=== PATIENT | male | born 1960 | race Caucasian/White ===

== ENCOUNTER 2021-03-20 16:41 | Inpatient (IN) ==
--- NOTE | 2021-03-20 17:24 | Emergency Department Note ---
Impression & Plan Hypoxia, Fluid overload, Hypertensive urgency ED Provider Note Provider: Davin Win MD DATE OF SERVICE: 03/20/2021 CHIEF COMPLAINT: Dyspnea on exertion, weakness HISTORY OF PRESENT ILLNESS: Patient is a 60-year-old gentleman history of hypertension and hyperlipidemia presenting referred from the outpatient [facility] clinic via ambulance today due to new onset of hypoxia. Patient and patient's at bedside report over the past month he is off symptoms particularly with exertion of some shortness of breath over the last several days. Some weakness over the last several weeks. Denies any pain. No syncope reported. Patient states he noted some increased swelling of his legs and a little bit of slight increased abdominal swelling. Denies any fever or chills. Denies any recent travel or sick contacts. Patient states he missed his blood pressure medicine yesterday and today as the pharmacy was out of his losartan. Noted at the clinic to be hypoxic into the mid 80s and hypertensive. REVIEW OF SYSTEMS: A total of 10 review of systems was obtained and negative except as stated above in the HPI. PAST MEDICAL HISTORY: As noted above MEDICATIONS: Reviewed home medications SOCIAL HISTORY: Former smoker, PHYSICAL EXAM: GENERAL: alert and oriented in no acute distress on stretcher Head: normocephalic and atraumatic EYES: No injection, discharge or icterus. NECK: Trachea midline. Supple. ENT: Mucous membranes pink and moist. LUNGS: Airway patent. No retractions. Breath sounds clear HEART: Regular rate and rhythm. No chest wall tenderness ABDOMEN: Soft and non-tender, without guarding or rebound. Mild distention. SKIN: Acyanotic, warm, dry, without rashes EXTREMITIES: Without swelling, tenderness or deformity with 1-2+ lower extremity edema. NEUROLOGICAL: No focal deficits. No aphasia. No facial droop or slurred speech. Normal strength and tone in the extremities. Sensation to gross touch normal. Ambulatory. EK bpm normal sinus rhythm right bundle branch block. No PVC or PAC. No acute ST segment elevation with some diffuse anterior T wave inversions. QTC 518. CONTINUOUS CARDIAC MONITORING: was ordered and showed a heart rate of 80s-90s bpm in normal sinus rhythm Patient's laboratory studies and imaging reviewed. Differential includes Infection, dehydration, metabolic abnormality, hypo/hyperglycemia, electrolyte disturbance, anemia, hypoxia, cardiac sources, intracerebral event, toxicologic, neurologic, as well as other pathologies. IMPRESSION/MEDICAL DECISION MAKING: Patient with significant hypertension. No pain complaint. Mildly hypoxic. Some mild history of emphysema/smoking reported. Non-smoker now. No infectious symptoms reported. Improvement of hypoxia with limited oxygen supplementation. D-dimer negative given this low suspicion for PE. Covid test was sent. Basic blood work sent. EKG with some T wave changes and right bundle branch block. Troponin detectable but not abnormal. Some leg swelling. Question some onset of CHF possibly from uncontrolled hypertension. Given a dose of nitroglycerin and some Lasix initially. Discussed with the patient given his hypoxia recommend further evaluation here in the hospital with cardiac evaluation of the heart and blood pressure control. He was in agreement this plan. Hospitalist contacted. DIAGNOSIS: Hypoxia, fluid overload, hypertensive urgency DISPOSITION: Hospitalist will evaluate Patient was agreeable with this plan. Past Med/Surg History Medical History (Updated 03/20/21 @ 18:41 by Davin Win M.D.) Dyslipidemia Hydradenitis Hypertension Surgical History (Updated 12/31/17 @ 07:56 by Linda Chowdary) History of appendectomy Social History Smoking Status: Former smoker Feels Safe at Home: Yes Allergies Allergies Allergy/AdvReac Type Severity Reaction Status Date / Time No Known Allergies Allergy Unknown Verified 03/20/21 17:43 Home Meds Home Medications Medication Instructions Recorded Confirmed atorvastatin 20 mg tablet 20 mg PO HS 12/31/17 03/20/21 losartan 50 mg tablet 50 mg PO DAILY 12/31/17 03/20/21 adalimumab 40 mg/0.4 mL 40 mg SUBCUT WK 03/20/21 03/20/21 subcutaneous pen kit (Humira(CF) Pen) fluticasone 250 mcg-salmeterol 50 1 inh INHALATION DAILY 03/20/21 03/20/21 mcg/dose blistr powdr for inhalation (Advair Diskus) Results & Data (ED) Vital Signs Vital Signs - 24 hr 03/20/21 16:45 03/20/21 16:53 03/20/21 17:24 Temperature 36.7 C Temperature Source Temporal Artery Scan Pulse Rate 95 H 88 Pulse Rate [Finger] 89 Pulse Rhythm Regular Regular Pulse Rhythm [Finger] Regular Pulse Strength Normal Pulse Strength [Finger] Normal Respiratory Rate 22 20 20 Respiratory Effort / Characteristics Non-Labored Spontaneous Respiratory Depth Normal Normal Respiratory Pattern Regular Regular Blood Pressure 213/137 H Blood Pressure [Right Arm] Blood Pressure Mean 162 Blood Pressure Mean [Right Arm] Blood Pressure Position Sitting Blood Pressure Position [Right Arm] Pulse Oximetry 73 L 92 96 Oxygen Delivery Method Room Air Nasal Cannula Nasal Cannula Oxygen Flow Rate 4 4 Sepsis Recent Fever Within 48 Hours No Sepsis New/Unexplained Change in Mental Status N/A Sepsis Action Taken by Nursing No Action Required 03/20/21 18:15 03/20/21 18:38 Temperature Temperature Source Pulse Rate Pulse Rate [Finger] 105 H Pulse Rhythm Pulse Rhythm [Finger] Regular Pulse Strength Pulse Strength [Finger] Normal Respiratory Rate 18 Respiratory Effort / Characteristics Non-Labored Respiratory Depth Normal Respiratory Pattern Blood Pressure Blood Pressure [Right Arm] 195/116 H 150/113 H Blood Pressure Mean Blood Pressure Mean [Right Arm] 142 125 Blood Pressure Position Blood Pressure Position [Right Arm] Sitting Sitting Pulse Oximetry 97 Oxygen Delivery Method Nasal Cannula Oxygen Flow Rate 4 Sepsis Recent Fever Within 48 Hours Sepsis New/Unexplained Change in Mental Status Sepsis Action Taken by Nursing Laboratory Data Result diagrams: 03/20/21 17:25 03/20/21 17:25 Lab Results 03/20/21 03/20/21 03/20/21 Range/Units 17:25 17:25 17:25 WBC 5.94 (4.8-10.8) K/uL RBC 6.01 (4.7-6.1) M/uL Hgb 17.7 (14.0-18.0) g/dL Hct 55.7 H (42-52) % MCV 92.7 (80-100) fL MCH 29.5 (25-34) pg MCHC 31.8 L (32-36) g/dL RDW Std Deviation 51.7 H (36.4-46.3) fL RDW Coeff of Tiffany 15.0 H (11.5-14.5) % Plt Count 121 L (130-400) K/uL MPV 11.6 H (7.4-10.4) fL Immature Gran % (Auto) 0.2 % Neut % (Auto) 67.1 % Lymph % (Auto) 25.6 % Coffee % (Auto) 5.6 % Eos % (Auto) 1.2 % Baso % (Auto) 0.3 % Neut # (Auto) 3.99 (1.4-6.5) K/uL Lymph # (Auto) 1.52 (1.2-3.4) K/uL Coffee # (Auto) 0.33 (0.11-0.59) K/uL Eos # (Auto) 0.07 (0-0.5) K/uL Baso # (Auto) 0.02 (0-0.2) K/uL Immature Gran # (Auto) 0.01 (0.00-0.02) K/uL Absolute Nucleated RBC 0.00 (0-0) K/uL Nucleated RBC % (auto) 0.0 % PT 10.5 (9.0-12.0) Seconds INR 1.0 (0.9-1.1) D-Dimer 270 (0-500) ug/L FEU Sodium 138 (136-145) mmol/L Potassium 4.3 (3.5-5.1) mmol/L Chloride 97 L (98-107) mmol/L Carbon Dioxide 35 H (21-32) mmol/L Anion Gap 6 (3-11) BUN 17 (6-23) mg/dl Creatinine 0.91 (0.6-1.4) mg/dl Est Cr Clr Drug Dosing 112.5 ml/min Est GFR ( Amer) 105.8 ml/min Est GFR (Non-Af Amer) 91.3 ml/min BUN/Creatinine Ratio 18.7 (10-20) Glucose 109 H (70-99(Fasting)) mg/dl Calcium 10.6 H (8.5-10.1) mg/dl Total Bilirubin 0.7 (0.2-1.0) mg/dl AST 23 (13-39) U/L ALT 31 (7-52) U/L Alkaline Phosphatase 57 (34-104) U/L Troponin I 0.03 (0-0.04) ng/ml Total Protein 7.6 (6.0-8.3) gm/dl Albumin 4.5 (3.4-5.0) gm/dl Globulin 3.1 (2.5-4.0) gm/dl Albumin/Globulin Ratio 1.5 (0.9-2) TSH (0.300-4.500) uIu/ml Urine Color Urine Appearance (Clear) Urine pH (4.5-7.5) Ur Specific [place] (1.000-1.030) Urine Protein (Negative) Urine Glucose (UA) (Negative) Urine Ketones (Negative) Urine Blood (Negative) Urine Nitrite (Negative) Urine Bilirubin (Negative) Urine Urobilinogen (Negative) Ur Leukocyte Esterase (Negative) Urine WBC (Auto) (0-5) /hpf Urine RBC (Auto) (0-4) /hpf U Hyaline Cast (Auto) (0-5) /lpf U Epithel Cells (Auto) (0-5) /lpf Urine Bacteria (Auto) (Negative) SARS-CoV-2, RNA, NAAT (NEGATIVE) 03/20/21 03/20/21 03/20/21 Range/Units 17:25 18:00 18:35 WBC (4.8-10.8) K/uL RBC (4.7-6.1) M/uL Hgb (14.0-18.0) g/dL Hct (42-52) % MCV (80-100) fL MCH (25-34) pg MCHC (32-36) g/dL RDW Std Deviation (36.4-46.3) fL RDW Coeff of Tiffany (11.5-14.5) % Plt Count (130-400) K/uL MPV (7.4-10.4) fL Immature Gran % (Auto) % Neut % (Auto) % Lymph % (Auto) % Coffee % (Auto) % Eos % (Auto) % Baso % (Auto) % Neut # (Auto) (1.4-6.5) K/uL Lymph # (Auto) (1.2-3.4) K/uL Coffee # (Auto) (0.11-0.59) K/uL Eos # (Auto) (0-0.5) K/uL Baso # (Auto) (0-0.2) K/uL Immature Gran # (Auto) (0.00-0.02) K/uL Absolute Nucleated RBC (0-0) K/uL Nucleated RBC % (auto) % PT (9.0-12.0) Seconds INR (0.9-1.1) D-Dimer (0-500) ug/L FEU Sodium (136-145) mmol/L Potassium (3.5-5.1) mmol/L Chloride (98-107) mmol/L Carbon Dioxide (21-32) mmol/L Anion Gap (3-11) BUN (6-23) mg/dl Creatinine (0.6-1.4) mg/dl Est Cr Clr Drug Dosing ml/min Est GFR ( Amer) ml/min Est GFR (Non-Af Amer) ml/min BUN/Creatinine Ratio (10-20) Glucose (70-99(Fasting)) mg/dl Calcium (8.5-10.1) mg/dl Total Bilirubin (0.2-1.0) mg/dl AST (13-39) U/L ALT (7-52) U/L Alkaline Phosphatase (34-104) U/L Troponin I (0-0.04) ng/ml Total Protein (6.0-8.3) gm/dl Albumin (3.4-5.0) gm/dl Globulin (2.5-4.0) gm/dl Albumin/Globulin Ratio (0.9-2) TSH 2.263 (0.300-4.500) uIu/ml Urine Color Yellow Urine Appearance Clear (Clear) Urine pH 6.0 (4.5-7.5) Ur Specific [place] 1.013 (1.000-1.030) Urine Protein 2+ H (Negative) Urine Glucose (UA) Negative (Negative) Urine Ketones Negative (Negative) Urine Blood Negative (Negative) Urine Nitrite Negative (Negative) Urine Bilirubin Negative (Negative) Urine Urobilinogen Negative (Negative) Ur Leukocyte Esterase Negative (Negative) Urine WBC (Auto) 0 (0-5) /hpf Urine RBC (Auto) 0-4 (0-4) /hpf U Hyaline Cast (Auto) 1-5 (0-5) /lpf U Epithel Cells (Auto) 0-5 (0-5) /lpf Urine Bacteria (Auto) Negative (Negative) SARS-CoV-2, RNA, NAAT NEGATIVE (NEGATIVE) Administered Medications Discontinued Medications Furosemide (Furosemide 40 Mg/4 Ml Vial) 40 mg IV ONE ONE Stop: 03/20/21 18:24 Last Admin: 03/20/21 18:30 Dose: 40 mg Documented by: [id number] Nitroglycerin (Nitroglycerin Sl 0.4 Mg/Tab Tab) 0.4 mg SL NOW STA Stop: 03/20/21 18:24 Last Admin: 03/20/21 18:30 Dose: 0.4 mg Documented by: [id number] Imaging Data Radiologist's Impression: Chest X-Ray 03/20/21 17:16 XR chest 1V portable CLINICAL HISTORY: weakness TECHNIQUE: Single frontal radiograph of the chest was obtained. Comparison: Comparison is made to right rib series 12/31/2017 FINDINGS: No lines and tubes are seen. The cardiomediastinal silhouette is normal. Prominence and cephalization of the vasculature is seen. No evidence of pleural effusion or pneumothorax. IMPRESSION: Mild pulmonary edema. ACT 112: Negative or not required by law. Electronically signed by: Luis Aguilar M.D. 03/20/2021 5:40 PM Discharge Plan Visit Data Chief Complaint: Illness Stated Complaint: SOB, TIRED, OXYGEN 86, SENT FROM [facility] ED Provider: Davin Win Discharge Problem: Hypoxia, Fluid overload, Hypertensive urgency Patient Disposition: Being Evaluated by Hospitalist Forms Stand Alone Forms: [facility] Prescriptions Prescriptions: No Action losartan 50 mg tablet 50 mg PO DAILY RF: 0 atorvastatin 20 mg tablet 20 mg PO HS RF: 0 fluticasone propion-salmeterol [Advair Diskus] 250-50 mcg/dose blister with device 1 inh inhalation DAILY RF: 0 Humira(CF) Pen 40 mg/0.4 mL pen injector kit 40 mg SUBCUT WK RF: 0 Referrals Referrals: Benjamin Pagan MD [Primary Care Provider] - Discharge Problem: Fluid overload Qualifiers: Hypervolemia type: unspecified Qualified Code(s): E87.70 - Fluid overload, un specified
--- NOTE | 2021-03-20 17:42 | XRay Report ---
XR chest 1V portable CLINICAL HISTORY: weakness TECHNIQUE: Single frontal radiograph of the chest was obtained. Comparison: Comparison is made to right rib series 12/31/2017 FINDINGS: No lines and tubes are seen. The cardiomediastinal silhouette is normal. Prominence and cephalization of the vasculature is seen. No evidence of pleural effusion or pneumothorax. IMPRESSION: Mild pulmonary edema. ACT 112: Negative or not required by law. Electronically signed by: Luis Aguilar M.D. 03/20/2021 5:40 PM
[2021-03-20 17:49] LABS: Basophils # (auto) 0.02 K/uL (0-0.2); Basophils % (auto) 0.3 %; Eosinophils # (auto) 0.07 K/uL (0-0.5); Eosinophils % (auto) 1.2 %; Hematocrit (blood only) 55.7 % (42-52); Hemoglobin 17.7 g/dL (14.0-18.0); Immature Granulocytes # (auto) 0.01 K/uL (0.00-0.02); Immature Granulocytes % (auto) 0.2 %; Lymphocytes # (auto) 1.52 K/uL (1.2-3.4); Lymphocytes % (auto) 25.6 %; Mean Corpuscular Hemoglobin 29.5 pg (25-34); Mean Corpuscular Hgb Conc 31.8 g/dL (32-36); Mean Corpuscular Volume 92.7 fL (80-100); Mean Platelet Volume 11.6 fL (7.4-10.4); Monocytes # (auto) 0.33 K/uL (0.11-0.59); Monocytes % (auto) 5.6 %; Neutrophils # (auto) 3.99 K/uL (1.4-6.5); Neutrophils % (auto) 67.1 %; Platelet Count 121 K/uL (130-400); RDW Standard Deviation 51.7 fL (36.4-46.3); Red Blood Count 6.01 M/uL (4.7-6.1); White Blood Count 5.94 K/uL (4.8-10.8)
[2021-03-20 17:53] LABS: D Dimer 270 ug/L FEU (0-500); Prothrombin Time 10.5 Seconds (9.0-12.0)
[2021-03-20 18:14] LABS: Troponin I 0.03 ng/ml (0-0.04)
[2021-03-20 18:17] LABS: Albumin Globulin Ratio 1.5 (0.9-2); Albumin Level 4.5 gm/dl (3.4-5.0); BUN Creatinine Ratio 18.7 (10-20); Bilirubin,Total 0.7 mg/dl (0.2-1.0); Calcium 10.6 mg/dl (8.5-10.1); Creatinine Clr Calc Pharmacy 112.5 ml/min; Est GFR (African American) 105.8 ml/min; Est GFR (Non-African American) 91.3 ml/min; Globulin 3.1 gm/dl (2.5-4.0); Potassium 4.3 mmol/L (3.5-5.1); Total Protein 7.6 gm/dl (6.0-8.3)
[2021-03-20] MEDS ORDERED: NITROGLYCERIN SL 0.4 MG/TAB TAB SL STA (18:23)
[2021-03-20] MEDS ORDERED: FUROSEMIDE 40 MG/4 ML VIAL IV ONE (18:23)
[2021-03-20 18:47] LABS: Appearance Urine Clear (Clear); Bacteria Urine Automated Negative (Negative); Bilirubin Urine Negative (Negative); Blood Urine Negative (Negative); Color Urine Yellow; Epithelial Cell Urine Auto 0-5 /lpf (0-5); Glucose Urine UA Negative (Negative); Ketones Urine Negative (Negative); Leukocyte Esterase Urine Negative (Negative); Nitrite Urine Negative (Negative); Protein Urine 2+ (Negative); RBC Urine Automated 0-4 /hpf (0-4); Specific Gravity Urine 1.013 (1.000-1.030); Urobilinogen Urine Negative (Negative); WBC Urine Automated 0 /hpf (0-5)
[2021-03-20] MEDS: NITROGLYCERIN 2% OINTMENT 30GM TUBE EXT SCH ×2 (20:46→20:50)
[2021-03-20] MEDS ORDERED: POLYETHYLENE (MIRALAX) 17 GM PACK PO PRN (22:00)
[2021-03-20] MEDS ORDERED: LABETALOL HCL IV 5 MG/ML 20ML IV PRN (22:00)
[2021-03-20] MEDS ORDERED: ACETAMINOPHEN 325 MG TAB PO PRN (22:00)
[2021-03-20] MEDS ORDERED: LEVALBUTEROL HCL 1.25 MG/3 ML NEB NEB PRN (22:00)
[2021-03-20] MEDS ORDERED: NITROGLYCERIN SL 0.4 MG/TAB TAB SL PRN (22:00)
--- NOTE | 2021-03-20 22:31 | History and Physical Report ---
DATE OF ADMISSION: 03/20/2021. CHIEF COMPLAINT: Shortness of breath. HISTORY OF PRESENT ILLNESS: This is a 60-year-old male with past medical history significant for hyperlipidemia, COPD, hypertension, fatty liver, hidradenitis suppurativa who presents with shortness of breath and weight gain. The patient went to family doctor today complaining of bilateral leg swelling, leg cramps, weight gain, since last 8 months. He says the shortness of breath got worse lately. He says he gained about 30 pounds in the last 8 months. His SOB getting worse and lately he is getting more short of breath even while at rest, that is the reason he went to PCP. In the PCP's office, his oxygen saturation was 86% and he was sent to the ER. In the ER, when he came in he was saturating 73%, currently on 4 liters he is saturating 96%. Resting comfortably and speaking in full sentences without any resp.distress. The patient denies any headache. No blurred visions, no earache, no runny nose, no sore throat, no cough. Appetite is good. Currently, no chest pain, no nausea, no vomiting, no abdominal pain. Normal bowel and bladder movements. In the ER , his blood pressure was running high. He takes losartan and is on Humira for hidradenitis suppurativa. ALLERGIES: No known drug allergies. PAST MEDICAL HISTORY: As mentioned above. 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 MEDICATIONS: The patient is on Humira 40 mg subcutaneous weekly, atorvastatin 20 mg p.o. at bedtime, Advair Diskus one inhalation daily, losartan 50 mg p.o. daily. FAMILY HISTORY: Significant for brother had colon cancer, diabetes; father has stroke. SOCIAL HISTORY: , former smoker, quit in 2017, smoked 1 pack a day for 30 years. No alcohol, no drug use. REVIEW OF SYSTEMS: As per HPI. Rest of the review of systems is negative. PHYSICAL EXAMINATION: GENERAL: The patient is morbidly obese, currently not in acute distress. VITAL SIGNS: Temperature 36.7, pulse 105, respiratory rate 18, blood pressure 150/113, oxygen 97% on 4 liters. HEENT: Pupils equal, round, and reactive to light. Oral mucosa moist. NECK: No JVD, no neck masses. CARDIOVASCULAR: S1 and S2 heard, regular rate and rhythm. No murmur, no gallop. RESPIRATORY SYSTEM: Normal AP diameter. No accessory muscle use. No wheezing, no crackles. ABDOMEN: Soft, bowel sounds present, nontender, no distention. CENTRAL NERVOUS SYSTEM: Cranial nerves II-XII grossly intact, nonfocal. EXTREMITIES: Bilateral lower extremities, +2 pedal edema present, no erythema seen. LABORATORY DATA: WBC 5.9, hemoglobin 17.7, hematocrit 55.7, platelets 121. PT 10.5, INR 1, D-dimer 270. Sodium 138, potassium 4.3, chloride 97, bicarbonate 35, BUN 17, creatinine 0.9, serum glucose 109, calcium 10.6, total bilirubin 0.7, AST 23, ALT 31, alkaline phosphatase 57. Troponin I of 0.03. BNP 50. TSH is 2.2. Urinalysis negative. SARS-CoV-2 RNA negative. IMAGING DATA: Chest x-ray, pulmonary edema. EKG: Normal sinus rhythm at a rate of 89, right bundle-branch block, QTc of 518. ASSESSMENT AND PLAN: This is a 60-year-old male who presents with shortness of breath and found to have pulmonary edema. 1. Shortness of breath: Most likely acute congestive heart failure, diastolic versus systolic. Received IV Lasix 40 in the ER. Will continue with IV Lasix 40 b.i.d. Daily weights, I's and O's. Will order an echo. Monitor in the tele. Consult cardiology in the a.m. for further recommendations. 2. Hypertensive urgency: When he came, blood pressure was high in 200s, currently 150/113. Received Lasix.Will place him on nitropatch. Continue his home losartan. Placed on IV labetalol p.r.n. and monitor his blood pressure. Follow echo 3.. Prolonged QTc. Avoid QT prolonging drugs. Will follow the repeat EKG in the a.m. 3. Hyperlipidemia: Continue statin. 4. History of chronic obstructive pulmonary disease: Continue home inhalers, nebs p.r.n. 5. Thrombocytopenia, history of fatty liver: LFTs are okay. His platelets are 121, borderline low. Platelets were normal in November 2019, needs followup. 6. Morbid obesity: Needs counseling. Needs sleep study as outpatient. When stable, may do nocturnal pulse ox study in the hospital. 7. Deep venous thrombosis prophylaxis: Lovenox. DISPOSITION: Closely monitor in the tele floor. Level 1 full code. PT/OT prior to discharge. Social service to help with discharge planning. Job ID: [id number] [facility]
[2021-03-20] MEDS: ENOXAPARIN INJ 40 MG/0.4 ML SYR SQ SCH (23:30)
[2021-03-20] MEDS: ATORVASTATIN 20 MG TAB PO SCH (23:30)
[2021-03-21 06:24] LABS: Troponin I < 0.03 ng/ml (0-0.04)
[2021-03-21 06:26] LABS: Anion Gap 6 (3-11); BUN Creatinine Ratio 18.2 (10-20); Blood Urea Nitrogen 18 mg/dl (6-23); Calcium 9.9 mg/dl (8.5-10.1); Carbon Dioxide 36 mmol/L (21-32); Chloride 96 mmol/L (98-107); Creatinine Clr Calc Pharmacy 103.4 ml/min; Est GFR (African American) 95.5 ml/min; Est GFR (Non-African American) 82.4 ml/min; Glucose 130 mg/dl (70-99(Fasting)); Potassium 4.3 mmol/L (3.5-5.1); Sodium 138 mmol/L (136-145)
[2021-03-21 06:33] LABS: Hematocrit (blood only) 54.3 % (42-52); Mean Corpuscular Hemoglobin 29.5 pg (25-34); Mean Corpuscular Hgb Conc 31.3 g/dL (32-36); Mean Corpuscular Volume 94.3 fL (80-100); Mean Platelet Volume 12.4 fL (7.4-10.4); Platelet Count 125 K/uL (130-400); RDW Coefficient of Variation 15.3 % (11.5-14.5); RDW Standard Deviation 53.1 fL (36.4-46.3); Red Blood Count 5.76 M/uL (4.7-6.1); White Blood Count 5.09 K/uL (4.8-10.8)
[2021-03-21 06:34] LABS: Basophils # (auto) 0.01 K/uL (0-0.2); Basophils % (auto) 0.2 %; Eosinophils # (auto) 0.07 K/uL (0-0.5); Eosinophils % (auto) 1.4 %; Immature Granulocytes # (auto) 0.01 K/uL (0.00-0.02); Immature Granulocytes % (auto) 0.2 %; Lymphocytes # (auto) 1.23 K/uL (1.2-3.4); Lymphocytes % (auto) 24.2 %; Monocytes # (auto) 0.57 K/uL (0.11-0.59); Monocytes % (auto) 11.2 %; Neutrophils % (auto) 62.8 %; Platelet Estimate Decreased (Normal); RBC Morphology Unremarkable
[2021-03-21] MEDS: NITROGLYCERIN 2% OINTMENT 30GM TUBE EXT SCH ×3 (08:01→18:07)
--- NOTE | 2021-03-21 08:29 | Cardiology Consultation ---
Date of Consultation March 21, 2021 Assessment & Plan (1) Acute CHF (congestive heart failure): Acute CHF, ?HFpEF vs. HFrEF. +SOB +Decline in functional capacity Patient remains hypervolemic on exam. Responding well to IV diuresis. Echo results pending 1. Continue Lasix 40 mg BID, continue to trend renal function and replace electrolytes as needed. 2. 2 g sodium restriction and 1500 cc fluid restriction 3. Daily STANDING weights 4. Further recommendations pending echo results. 5. Nocturnal pulse ox study to rule out JOANNE (2) Hypoxia: Hypoxia noted on admission, present x1+ years. Patient saw Dr. Perea in November of 2019 due to severe COPD and had low saturations at that OV also. 1. Recommend ongoing diuresis to assist with oxygenation. Will defer to primary team regarding the need for ongoing supplemental o2 therapy. 2. Encourage use of his inhalers (3) Hypertensive urgency: Elevated blood pressures upon presentation. Normally maintains on Losartan, however, was not taking this due to a pharmacy issue. 1. Continue to trend blood pressures 2. Once fully diuresed can consider increase of his losartan vs adding another agent if blood pressures remain elevated. Supervising Physician Co-Signing Physician Notes I have seen and examined the patient. I discussed the case with the MARINE INSULATOR. I have reviewed the medical record. The patient has an echocardiogram pending but most likely he has heart failure on the basis of diastolic dysfunction from hypertension, obesity and possibly sleep apnea. History of Present Illness Reason for Consultation: Shortness of breath Requesting Physician: Araceli Hospitalist Attending Physician: Raj Aponte MD History of Present Illness 60 year old male. Presented to ED yesterday after being referred by his PCP due to shortness of breath, weight gain, and lower extremity edema. Patient was hypoxic in the office with an spo2 of 83% on room air, 73% when in the ED. Placed on 3L NC and sats improved to the mid 90s. Noted over the last month patient was having worsening shortness of breath and low stamina. CXR showed mild pulmonary edema. Patient received 40 mg of IV Lasix in ED. Patient was also hypertensive at this time with systolics in the 200s, treated with diuretics, a nitro-patch, and his home dose of losartan. BP improved to 150s systolic. Trop negative x2. Covid negative. Echo ordered by hospitalist. Upon entrance into the room, patient was sitting up in bed resting. Currently wearing 3L nc with sats in the 90s. Notes that he used to monitor his o2 at home and it was in the 80s for about a year now. Was to follow up with pulmonary testing and a sleep apnea screen but never followed through for an unknown re ason. Notes worsening lower extremity edema, not able to wear his normal boots. Abdomen is bloated and pants are fitting tighter. +Orthopnea. Patient eats a diet high in salt and fried foods. does drink a pot of coffee daily and about 1.5 L of water. Notes a decline in stamina over the last few months. No exertional chest pain, palpitations, dizziness, or syncope. Has been off of his losartan due to an issue with the pharmacy. Tele: SR 90s Weight: 134 kg I&O: -900 mL PMH: HTN HLD COPD Allergies Allergy/AdvReac Type Severity Reaction Status Date / Time No Known Allergies Allergy Unknown Verified 03/20/21 17:43 Home Medications Medication Instructions Recorded Confirmed Type atorvastatin 20 mg tablet 20 mg PO HS 12/31/17 03/20/21 History losartan 50 mg tablet 50 mg PO DAILY 12/31/17 03/20/21 History adalimumab 40 mg/0.4 mL 40 mg SUBCUT WK 03/20/21 03/20/21 History subcutaneous pen kit (Humira(CF) Pen) fluticasone 250 mcg-salmeterol 50 1 inh INHALATION DAILY 03/20/21 03/20/21 History mcg/dose blistr powdr for inhalation (Advair Diskus) Patient History Medical History (Updated 03/21/21 @ 08:29 by CHANDRA Esposito) Dyslipidemia Hydradenitis Hypertension Surgical History (Updated 12/31/17 @ 07:56 by Linda Chowdary) History of appendectomy Social History Smoking Status: Former smoker Second Hand Exposure: No; Do You Dip or Chew Tobacco: No; Tobacco Cessation Education Requested by Patient: No Hx Alcohol Use: No Hx Substance Use: No Preferred Language: Sinhala Communication Ability: Effective Drop Forger Required: No Beliefs That Will Affect Care: None marital status: Current Living Situation: Spouse Other Information That Helps Us Care for You: No Feels Safe at Home: Yes Safety Concerns: Feels Safe At This Time Assistive Devices: None Review of Systems Review of Systems: All systems reviewed & are unremarkable except as noted in HPI & below Physical Exam Physical Exam: General: No acute distress. A+Ox3. HEENT: Normocephalic. Atraumatic. Conjunctiva and sclera clear. NECK: No carotid bruits. Unable to assess neck veins due to body habitus. Heart: Distant heart sounds, RRR Lungs: Distant lung sounds, rales in the bases Abdomen: Normal bowel sounds. Obese, distended/taut Extremities: Trace BL lower extremity edema. No clubbing or cyanosis. Pulses: radial=2/4, posterior tibial=2/4, dorsalis pedis = 2/4. NEURO: No focal deficits. PSYCH: Normal. Results & Data ([facility]) Vital Signs (Past 12 Hours) Vital Signs Pulse Resp BP Pulse Ox Pulse Ox 03/21/21 06:30 87 19 133/104 H 92 03/21/21 06:15 88 21 148/99 H 91 03/21/21 06:00 92 H 14 150/98 H 92 03/21/21 05:45 92 H 14 138/96 92 03/21/21 05:30 90 23 149/102 H 92 03/21/21 05:16 95 H 21 141/113 H 93 03/21/21 05:00 20 173/108 H 91 03/21/21 04:45 90 16 165/99 H 90 03/21/21 04:30 96 H 19 161/105 H 94 03/21/21 04:15 98 H 16 168/129 H 93 03/21/21 04:00 95 H 20 162/104 H 92 03/21/21 03:45 79 18 153/97 H 94 03/21/21 03:30 85 16 168/102 H 94 03/21/21 03:15 82 19 149/99 H 90 03/21/21 03:00 88 144/99 H 94 03/21/21 02:45 94 H 19 160/102 H 93 03/21/21 02:30 91 H 19 154/100 H 93 03/21/21 02:15 78 12 148/100 H 96 03/21/21 02:00 87 21 154/110 H 94 03/21/21 01:45 87 18 149/102 H 92 03/21/21 01:30 92 H 19 142/102 H 93 03/21/21 01:15 93 H 24 143/99 H 92 03/21/21 01:00 92 H 22 159/109 H 94 03/21/21 00:45 94 H 19 147/107 H 92 03/21/21 00:30 91 H 20 139/102 H 94 03/21/21 00:24 88 L 03/21/21 00:15 90 21 162/106 H 93 03/21/21 00:00 90 20 152/116 H 93 03/20/21 23:45 83 15 160/104 H 94 03/20/21 23:30 90 20 160/105 H 90 03/20/21 23:15 90 141/101 H 91 03/20/21 23:00 90 152/103 H 95 03/20/21 22:45 89 140/104 H 94 03/20/21 22:40 93 03/20/21 22:39 156/110 H 91 03/20/21 22:30 154/104 H 93 03/20/21 22:20 93 03/20/21 22:15 148/104 H 93 03/20/21 22:10 94 03/20/21 22:00 174/105 H 92 03/20/21 21:45 91 H 21 160/106 H 93 03/20/21 21:30 94 H 22 147/117 H 92 03/20/21 21:28 95 H 22 141/118 H 91 03/20/21 21:15 103 H 15 167/128 H 92 03/20/21 21:07 95 H 23 166/107 H 93 03/20/21 21:00 98 H 21 156/107 H 94 03/20/21 20:45 153/107 H 03/20/21 20:41 100 H 21 142/107 H 92 03/20/21 20:20 102 H 21 142/107 H 93
[2021-03-21] MEDS: LOSARTAN POTASSIUM 50 MG TAB PO SCH (10:31)
[2021-03-21] MEDS: ENOXAPARIN INJ 40 MG/0.4 ML SYR SQ SCH ×2 (10:31→21:57)
[2021-03-21] MEDS: FUROSEMIDE 40 MG/4 ML VIAL IV SCH ×2 (10:31→17:16)
[2021-03-21] MEDS: FLUTICASONE/VILANTEROL 100/25MCG 14 PUFFS/INHALER INH SCH (10:31)
--- NOTE | 2021-03-21 18:40 | Hospitalist Progress Note ---
Date of Service March 21, 2021 Assessment & Plan (1) Acute CHF (congestive heart failure): Plan: Patient is a 60 yr male who presents with shortness of breath and found to have pulmonary edema. Acute diastolic heart failure Pulmonary edema -CXR:Mild pulmonary edema. -ECHO: No significant valvular pathology. EF 60 to 65%. Left ventricle systolic function is normal. Right ventricular systolic function is normal. Continue IV Lasix 40 mg twice daily Continue low-sodium diet, fluid restriction Monitor I's and O's, daily weight Appreciate cardiology input Hypoxia Likely secondary to above History of COPD Nocturnal oximetry to rule out nocturnal hypoxemia Advised sleep study as outpatient to rule out JOANNE Continue supplemental oxygen as needed Hypertensive urgency: H/O noncompliance secondary to Insurance issues Continue losartan Monitor Prolonged QTc Avoid QT prolonging drugs Hyperlipidemia: Continue statin. H/O COPD No signs of exacerbation Continue home inhalers Thrombocytopenia H/O fatty liver Monitor platelet Needs follow-up as outpatient Morbid obesity: BMI:47 DVT Px: Lovenox. SQ Code Status Full code Admission and Anticipated Discharge Date Admission Date: March 20, 2021 Subjective Patient is seen and examined at bedside States feeling better today Shortness of breath slowly improving Offers no other complaints Family at bedside Denies any chest pain, dizziness, nausea, abdominal pain Review of Systems Review of Systems: All systems reviewed & are unremarkable except as noted in Subjective Physical Exam Physical Exam: Physical Exam: Vitals signs as noted above General Appearance:Morbidly Obese, no apparent distress Head: normocephalic, Atraumatic Eyes: normal inspection, EOMI Neck: supple, Trachea midline Respiratory/Chest: Decreased breath sounds, CTA Cardiovascular: S1, S2, No murmur Abdomen/GI:Soft, Non tender, Bowel sounds present Extremities/Musculoskeletal:normal inspection, B/L LE edema Neurologic/Psych:AAOX3, grossly no focal neurological deficits Skin: normal color, warm Results & Data Results & Data ([facility]) Vital Signs (Past 12 Hours) Vital Signs Temp Pulse Resp BP Pulse Ox 03/21/21 18:14 97 H 16 135/90 92 03/21/21 17:17 102 H 16 144/99 H 95 03/21/21 16:26 88 16 134/86 94 03/21/21 15:13 84 22 127/78 90 03/21/21 11:00 98 H 18 139/99 94 02/09/22 10:00 36.7 C 100 H 20 146/96 H 94 03/21/21 08:00 36.7 C 88 20 124/95 98 Laboratory Results Short CBC 03/21/21 Range/Units 05:10 WBC 5.09 (4.8-10.8) K/uL Hgb 17.0 (14.0-18.0) g/dL Hct 54.3 H (42-52) % Plt Count 125 L (130-400) K/uL BMP 03/21/21 05:10 Sodium 138 Potassium 4.3 Chloride 96 L Carbon Dioxide 36 H BUN 18 Creatinine 0.99 Glucose 130 H Calcium 9.9 Cardiac Enzymes 03/21/21 Range/Units 05:10 Troponin I < 0.03 (0-0.04) ng/ml Urine 03/20/21 Range/Units 18:35 Urine Color Yellow Urine Appearance Clear (Clear) Urine pH 6.0 (4.5-7.5) Ur Specific [place] 1.013 (1.000-1.030) Urine Protein 2+ H (Negative) Urine Glucose (UA) Negative (Negative)
[2021-03-21] MEDS: ATORVASTATIN 20 MG TAB PO SCH (21:57)
[2021-03-22] MEDS: NITROGLYCERIN 2% OINTMENT 30GM TUBE EXT SCH ×4 (00:15→18:12)
[2021-03-22 04:59] LABS: BUN Creatinine Ratio 22.6 (10-20); Calcium 10.1 mg/dl (8.5-10.1); Creatinine Clr Calc Pharmacy 110.1 ml/min; Est GFR (African American) 103.1 ml/min; Est GFR (Non-African American) 88.9 ml/min; Magnesium 1.9 mg/dl (1.7-2.4); Potassium 4.3 mmol/L (3.5-5.1)
[2021-03-22 05:43] LABS: Hematocrit (blood only) 55.8 % (42-52); Hemoglobin 17.3 g/dL (14.0-18.0); Mean Corpuscular Hemoglobin 29.4 pg (25-34); Mean Corpuscular Volume 94.9 fL (80-100); Platelet Count 129 K/uL (130-400); RDW Coefficient of Variation 15.1 % (11.5-14.5); RDW Standard Deviation 53.7 fL (36.4-46.3); Red Blood Count 5.88 M/uL (4.7-6.1); White Blood Count 5.99 K/uL (4.8-10.8)
--- NOTE | 2021-03-22 06:07 | Electrocardiogram Report ---
Test Reason : Blood Pressure : / mmHG Vent. Rate : 084 BPM Atrial Rate : 084 BPM P-R Int : 132 ms QRS Dur : 114 ms QT Int : 398 ms P-R-T Axes : 063 099 055 degrees QTc Int : 470 ms Poor data quality, interpretation may be adversely affected Normal sinus rhythm Rightward axis Borderline ECG No previous ECGs available Confirmed by Trey Padilla ([id number]) on 03/22/2021 6:07:29 AM Referred By: Benjamin Pagan Confirmed By:Trey Padilla
--- NOTE | 2021-03-22 06:08 | Electrocardiogram Report ---
Test Reason : Blood Pressure : / mmHG Vent. Rate : 086 BPM Atrial Rate : 086 BPM P-R Int : 134 ms QRS Dur : 152 ms QT Int : 428 ms P-R-T Axes : 066 095 042 degrees QTc Int : 512 ms Poor data quality, interpretation may be adversely affected Normal sinus rhythm Right bundle branch block Possible Septal infarct , age undetermined Abnormal ECG When compared with ECG of 20-MAR-2021 17:01, Right bundle branch block is now Present Confirmed by Trey Padilla ([id number]) on 03/22/2021 6:07:51 AM Referred By: Benjamin Pagan Confirmed By:Trey Padilla
--- NOTE | 2021-03-22 06:08 | Electrocardiogram Report ---
Test Reason : Blood Pressure : / mmHG Vent. Rate : 089 BPM Atrial Rate : 089 BPM P-R Int : 136 ms QRS Dur : 152 ms QT Int : 426 ms P-R-T Axes : 061 100 041 degrees QTc Int : 518 ms Normal sinus rhythm Right bundle branch block Abnormal ECG When compared with ECG of 20-MAR-2021 17:02, No significant change was found Confirmed by Trey Padilla ([id number]) on 03/22/2021 6:08:07 AM Referred By: Benjamin Pagan Confirmed By:Trey Padilla
--- NOTE | 2021-03-22 07:49 | Cardiology Progress Note ---
Date of Service March 22, 2021 Assessment & Plan (1) Acute CHF (congestive heart failure): Plan: Acute diastolic CHF, Patient remains hypervolemic on exam. Responding well to IV diuresis. Echo results pending 1. Continue Lasix 40 mg BID, continue to trend renal function and replace electrolytes as needed. 2. 2 g sodium restriction and 1500 cc fluid restriction 3. Daily STANDING weights 4. Will defer to primary team regarding the need for supplemental o2 during the day and night vs. CPAP need. (2) Hypoxia: Plan: Hypoxia noted on admission, present x1+ years. Patient saw Dr. Perea in November of 2019 due to severe COPD and had low saturations at that OV also. 1. Recommend ongoing diuresis to assist with oxygenation. Will defer to primary team regarding the need for ongoing supplemental o2 therapy. 2. Encourage use of his inhalers 3. Recommend PT/OT evaluation to assess functional capacity once o2 requirements stabilize. 4. Encouraged the use of SQ Lovenox for DVT prevention- patient now agreeable. (3) Hypertensive urgency: Plan: Elevated blood pressures upon presentation. Normally maintains on Losartan, however, was not taking this due to a pharmacy issue. 1. Continue to trend blood pressures, blood pressure improved today on exam. 2. Once fully diuresed can consider increase of his losartan vs adding another agent if blood pressures remain elevated. Admission and Anticipated Discharge Date Admission Date: March 20, 2021 Supervising Physician Co-Signing Physician Notes I have seen and examined the patient. I reviewed the medical record and discussed the case with the [employer]. I agree with the plan as outlined. The patient remains hypoxic despite a good diuresis with diuretics. I agree with checking a CT of the chest to rule out pulmonary emboli. Subjective 60 year old male. Know history of severe COPD and chronic hypoxia, untreated. Newly diagnosed with acute diastolic CHF. Echo this admission revealed normal LV systolic function and no significant valvular abnormalities. Yesterday- patient was diuresed with 40 mg of IV Lasix BID and was tolerating well. Overnight patient completed a pulse ox test showing multiple desaturations less than 88% Upon entrance into the room patient was sitting up comfortably in a chair. at bedside. States he is feeling much better- breathing has improved. However, patient is now requiring 10L NC- per nursing when he got up OOB last evening his sats dropped. Patient is noting improvement in his abdominal bloating, and resolution in his lower extremity edema. Orthopnea is lessening. CXR today showing: Mild cardiomegaly. Pulmonary vascular congestion without overt pulmonary edema. Linear left lung opacities suggestive of atelectasis. Tele: SR 90s Weight: 134 kg (03/21)- no daily weight was taken yet today I&O: -2.2mL PMH: HTN HLD COPD Review of Systems Review of Systems: All systems reviewed & are unremarkable except as noted in HPI & below Physical Exam Physical Exam: General: No acute distress. A+Ox3. HEENT: Normocephalic. Atraumatic. Conjunctiva and sclera clear. NECK: No carotid bruits. Unable to assess neck veins due to body habitus. Heart: Distant heart sounds, RRR Lungs: Distant lung sounds, rales in the bases Abdomen: Normal bowel sounds. Obese, distended/taut Extremities: No edema. No clubbing or cyanosis. Pulses: radial=2/4, posterior tibial=2/4, dorsalis pedis = 2/4. NEURO: No focal deficits. PSYCH: Normal. Results & Data ([facility]) Vital Signs (Past 12 Hours) Vital Signs Pulse Pulse Pulse Pulse Pulse Resp BP 03/22/21 04:00 88 03/22/21 01:47 99 H 20 03/22/21 01:31 03/22/21 00:15 82 18 03/22/21 00:04 75 18 03/21/21 22:30 74 19 03/21/21 22:15 81 73 17 113/56 L 03/21/21 22:00 73 21 117/62 03/21/21 21:58 74 16 03/21/21 21:45 82 19 135/91 03/21/21 21:35 84 89 03/21/21 21:30 78 14 122/80 03/21/21 21:20 80 16 03/21/21 21:15 80 20 141/84 H 03/21/21 21:00 90 19 137/87 03/21/21 20:45 86 85 21 141/90 H 03/21/21 20:30 90 22 125/90 03/21/21 20:16 104 H 22 133/105 H 03/21/21 20:00 87 20 140/89 03/21/21 19:45 93 H 4 L 128/89 BP Pulse Ox Pulse Ox Pulse Ox Pulse Ox Pulse Ox Pulse Ox 03/22/21 04:00 94 03/22/21 01:47 175/89 H 96 03/22/21 01:31 97 03/22/21 00:15 119/65 91 03/22/21 00:04 147/93 H 93 03/21/21 22:30 94 03/21/21 22:15 117/62 91 03/21/21 22:00 90 03/21/21 21:58 135/91 91 03/21/21 21:45 91 03/21/21 21:35 86 L 90 82 L 03/21/21 21:30 94 03/21/21 21:20 141/84 H 93 03/21/21 21:15 89 L 03/21/21 21:00 86 L 03/21/21 20:45 87 L 93 03/21/21 20:30 91 03/21/21 20:16 90 03/21/21 20:00 91 03/21/21 19:45 90 Laboratory Results 03/22/21 03/22/21 Range/Units 04:13 04:13 WBC 5.99 (4.8-10.8) K/uL RBC 5.88 (4.7-6.1) M/uL Hgb 17.3 (14.0-18.0) g/dL Hct 55.8 H (42-52) % MCV 94.9 (80-100) fL MCH 29.4 (25-34) pg MCHC 31.0 L (32-36) g/dL RDW Std Deviation 53.7 H (36.4-46.3) fL RDW Coeff of Tiffany 15.1 H (11.5-14.5) % Plt Count 129 L (130-400) K/uL MPV 12.0 H (7.4-10.4) fL Sodium 138 (136-145) mmol/L Potassium 4.3 (3.5-5.1) mmol/L Chloride 95 L (98-107) mmol/L Carbon Dioxide 39 H (21-32) mmol/L Anion Gap 4 (3-11) BUN 21 (6-23) mg/dl Creatinine 0.93 (0.6-1.4) mg/dl Est Cr Clr Drug Dosing 110.1 ml/min Est GFR ( Amer) 103.1 ml/min Est GFR (Non-Af Amer) 88.9 ml/min BUN/Creatinine Ratio 22.6 H (10-20) Glucose 138 H (70-99(Fasting)) mg/dl Calcium 10.1 (8.5-10.1) mg/dl Magnesium 1.9 (1.7-2.4) mg/dl Diagnostic Findings Echo 03/21/2021 LVEF 60-65% No significant valvular abnormalities Normal RV function LA and RA normal in size
[2021-03-22] MEDS: FUROSEMIDE 40 MG/4 ML VIAL IV SCH ×2 (08:21→18:12)
[2021-03-22] MEDS: LOSARTAN POTASSIUM 50 MG TAB PO SCH (08:21)
[2021-03-22] MEDS: ENOXAPARIN INJ 40 MG/0.4 ML SYR SQ SCH ×3 (08:21→21:08)
--- NOTE | 2021-03-22 09:41 | XRay Report ---
XR chest 1V portable CLINICAL HISTORY: Hypoxia COMPARISON STUDY: Chest radiograph March 20, 2021. FINDINGS: Lung volumes are normal. There is no pneumothorax or pleural effusion. Mild cardiomegaly is noted. Linear left lung opacities reflect atelectasis. No consolidation is identified. There is pulm onary vascular congestion. IMPRESSION: 1. Mild cardiomegaly. Pulmonary vascular congestion without overt pulmonary edema. 2. Linear left lung opacities suggestive of atelectasis. ACT 112: Negative or not required by law. Electronically signed by: Sav Yang M.D. 03/22/2021 9:40 AM
[2021-03-22] MEDS ORDERED: OPTIRAY 320 125ml IV ONE (16:16)
--- NOTE | 2021-03-22 16:26 | CT Scan Report ---
CT angio chest PE protocol CLINICAL HISTORY: Tachycardia. Increased oxygen requirements. Evaluate for pulmonary embolus. COMPARISON STUDY: Portable chest from 03/22/2021 CT DOSE: 965.88 mGy.cm TECHNIQUE: CT Angio of the chest was performed.followed by image post processing with coronal, and s agittal MIP reformats. Contrast Volume: Optiray 320, 120 ml FINDINGS: Vasculature: There is homogeneous perfusion of the pulmonary vasculature bilaterally. No intraluminal filling defects or evidence for pulmonary embolus is seen. Airway: The airway is clear. No endobronchial lesion is identified. Lungs: There is very minimal atelectasis at the lung bases posteriorly. Atelectasis is also seen invo lving the lingula. The lungs are clear of acute alveolar opacities, air bronchograms or pulmonary nod ules. There is no evidence for vascular congestion. Pleura: There is no evidence for pleural effusion. There is no evidence for pneumothorax. Mediastinum: There is no evidence for pathologic adenopathy. The heart size is within normal limits. The thoracic aorta is within normal limits. There is no evidence for pericardial effusion. Upper abdomen:The adrenal glands are normal bilaterally. Osseous structures: There is no acute osseous pathology. Impression: 1. No CTA evidence for pulmonary embolus. 2. Very minimal bibasal atelectasis and evidence for left lingular atelectasis. 3. Otherwise, no acute chest disease with no evidence for vascular congestion. ACT 112: Negative or not required by law. Electronically signed by: Peter Nelson M.D. 03/22/2021 4:25 PM
--- NOTE | 2021-03-22 17:59 | Hospitalist Progress Note ---
Date of Service March 22, 2021 Assessment & Plan (1) Acute CHF (congestive heart failure): Plan: Patient is a 60 yr male who presents with shortness of breath and found to have pulmonary edema. Acute diastolic heart failure Pulmonary edema -CXR:Mild pulmonary edema. -ECHO: No significant valvular pathology. EF 60 to 65%. Left ventricle systolic function is normal. Right ventricular systolic function is normal. Continue IV Lasix 40 mg twice daily Continue low-sodium diet, fluid restriction Monitor I's and O's, daily weight Appreciate cardiology input Needs follow up with Cardiology upon discharge Hypoxia Likely Multifactorial: CHF, COPD, atelectasis History of COPD Nocturnal oximetry: Needs 3 L at bedtime --CTA:No CTA evidence for pulmonary embolus. Very minimal bibasal atelectasis and evidence for left lingular atelectasis. Otherwise, no acute chest disease with no evidence for vascular congestion. Advised sleep study as outpatient to rule out JOANNE Continue supplemental oxygen as needed during day time Will get 2 step prior to discharge Incentive Spirometry Hypertensive urgency: H/O noncompliance secondary to Insurance issues Continue losartan Monitor Prolonged QTc Avoid QT prolonging drugs Hyperlipidemia: Continue statin. H/O COPD No signs of exacerbation Continue home inhalers Thrombocytopenia H/O fatty liver Monitor platelet Needs follow-up as outpatient Morbid obesity: BMI:47 DVT Px: Lovenox. SQ Code Status Full code Admission and Anticipated Discharge Date Admission Date: March 20, 2021 Subjective Patient is seen and examined at bedside Patient had episode of vomiting earlier today Denies any chest pain, shortness of breath, abdominal pain Eager to get discharged Currently on 4 L supplemental oxygen CTA done earlier today showed no PE Review of Systems Review of Systems: All systems reviewed & are unremarkable except as noted in Subjective Physical Exam Physical Exam: Physical Exam: Vitals signs as noted above General Appearance:Morbidly Obese, no apparent distress Head: normocephalic, Atraumatic Eyes: normal inspection, EOMI Neck: supple, Trachea midline Respiratory/Chest: Decreased breath sounds, CTA Cardiovascular: S1, S2, No murmur Abdomen/GI:Soft, Non tender, Bowel sounds present Extremities/Musculoskeletal:normal inspection, B/L LE edema Neurologic/Psych:AAOX3, grossly no focal neurological deficits Skin: normal color, warm Results & Data Results & Data ([facility]) Vital Signs (Past 12 Hours) Vital Signs Temp Pulse Resp BP Pulse Ox 03/22/21 17:05 36.7 C 89 18 129/81 94 03/22/21 12:54 36.8 C 93 H 22 129/81 97 03/22/21 07:56 36.9 C 91 H 19 130/98 97 Laboratory Results Short CBC 03/22/21 Range/Units 04:13 WBC 5.99 (4.8-10.8) K/uL Hgb 17.3 (14.0-18.0) g/dL Hct 55.8 H (42-52) % Plt Count 129 L (130-400) K/uL BMP 03/22/21 04:13 Sodium 138 Potassium 4.3 Chloride 95 L Carbon Dioxide 39 H BUN 21 Creatinine 0.93 Glucose 138 H Calcium 10.1
[2021-03-22] MEDS: FLUTICASONE/VILANTEROL 100/25MCG 14 PUFFS/INHALER INH SCH (18:13)
[2021-03-22] MEDS: ATORVASTATIN 20 MG TAB PO SCH (21:09)
[2021-03-23] MEDS: NITROGLYCERIN 2% OINTMENT 30GM TUBE EXT SCH ×4 (01:50→18:06)
--- NOTE | 2021-03-23 06:21 | Electrocardiogram Report ---
Test Reason : Blood Pressure : / mmHG Vent. Rate : 104 BPM Atrial Rate : 104 BPM P-R Int : 132 ms QRS Dur : 154 ms QT Int : 394 ms P-R-T Axes : 059 118 035 degrees QTc Int : 518 ms Poor data quality, interpretation may be adversely affected Sinus tachycardia Right bundle branch block Left posterior fascicular block Bifascicular block Abnormal ECG When compared with ECG of 20-MAR-2021 17:02, No significant change was found Confirmed by Trey Padilla ([id number]) on 03/23/2021 6:21:36 AM Referred By: Benjamin Pagan Confirmed By:Trey Padilla
[2021-03-23 06:36] LABS: Hemoglobin 16.9 g/dL (14.0-18.0); Mean Corpuscular Hemoglobin 29.9 pg (25-34); Mean Corpuscular Hgb Conc 31.3 g/dL (32-36); Mean Corpuscular Volume 95.4 fL (80-100); Mean Platelet Volume 11.2 fL (7.4-10.4); Platelet Count 110 K/uL (130-400); RDW Coefficient of Variation 14.9 % (11.5-14.5); RDW Standard Deviation 52.7 fL (36.4-46.3); Red Blood Count 5.66 M/uL (4.7-6.1); White Blood Count 5.84 K/uL (4.8-10.8)
[2021-03-23 07:16] LABS: BUN Creatinine Ratio 25.3 (10-20); Creatinine Clr Calc Pharmacy 107.5 ml/min; Est GFR (African American) 105.8 ml/min; Est GFR (Non-African American) 91.3 ml/min; Potassium 4.5 mmol/L (3.5-5.1)
--- NOTE | 2021-03-23 07:45 | Cardiology Progress Note ---
Date of Service March 23, 2021 Assessment & Plan (1) Acute CHF (congestive heart failure): Plan: Patient's volume status much improved. Patient appearing euvolemic 1. Stop IV Lasix, discharge on Lasix 40 mg PO. 2. 2 g sodium restriction and 1500 cc fluid restriction 3. Encourage daily weights at discharge 4. Will defer to primary team regarding the need for supplemental o2 during the day and night vs. CPAP need.- follow up with sleep med as outpatient 5. Can consider ischemia evaluation as an outpatient- follow up with cardiology 1-2 weeks post discharge (2) COPD (chronic obstructive pulmonary disease): (3) Hypoxia: Plan: Known Severe COPD with Hypoxia noted on admission, present x1+ years. Patient saw Dr. Perea in November of 2019 due to severe COPD and had low saturations at that OV also. 1. Will defer to primary team regarding the need for ongoing supplemental o2 therapy- plans for 2 step prior to DC 2. Encourage use of his inhalers/neb treatments, follow up with pulmonary as outpatient 3. Recommend PT/OT evaluation to assess functional capacity once o2 requirements stabilize. 4. Follow up with sleep medicine as an outpatient. 5. Encouraged the use of SQ Lovenox for DVT prevention- patient now agreeable. (4) Hypertensive urgency: Plan: Elevated blood pressures upon presentation. Normally maintains on Losartan, however, was not taking this due to a pharmacy issue. Requesting change of medication due to limited supply at his pharmacy. Also currently on nitro patch. 1. STOP Losartan 50 mg daily 2. STOP Nitro patch 3. Start Lisinopril 40 mg daily at DC, needs BMP in 1 week following DC prior to follow up with cardiology Plan: Case discussed with Dr. Caleb Padilla to [place] from a cardiology standpoint. Admission and Anticipated Discharge Date Admission Date: March 20, 2021 Supervising Physician Co-Signing Physician Notes I have seen and examined the patient. I have reviewed the medical record and discussed the case with the SPRAGGER. I agree with the plan as outlined above. Subjective 60 year old male. Known history of severe COPD and chronic hypoxia, untreated. Newly diagnosed with acute diastolic CHF. Echo this admission revealed normal LV systolic function and no significant valvular abnormalities. Yesterday- patient was diuresed with 40 mg of IV Lasix BID and was tolerating well. Required increased o2 requirements. CTA of the chest negative for PE Upon entrance into the room patient was sitting on the edge of the bed. accompanying him at bedside. Upon entrance into the room patient starts off by saying he is leaving today no matter what. He notes an improvement in his breathing- still requiring 4L NC, HR in the 90-100s, asymptomatic. No lower extremity edema, Abdominal distention resolved. Lung sounds diminished with an expiratory wheeze. Patient have a dx of COPD as he smoke for many years, quit 6 years ago and inhaled mcnulty and chemicals at his job working for [employer]. O2 does drop into the 89s when activity. Planning on doing a 2 step prior to dc. verbalized concern- they are unable to get losartan at their pharmacy and are requesting to switch medications. He is also wearing a nitro patch. CTA chest: No CTA evidence for pulmonary embolus. Very minimal bibasal atelectasis and evidence for left lingular atelectasis. Otherwise, no acute chest disease with no evidence for vascular congestion. Tele: SR 90s Weight: 134 kg>> 124.4 kg (down ~21 lbs) I&O: -2.2mL Review of Systems Review of Systems: All systems reviewed & are unremarkable except as noted in HPI & below Physical Exam Physical Exam: General: No acute distress. A+Ox3. HEENT: Normocephalic. Atraumatic. Conjunctiva and sclera clear. NECK: No carotid bruits. Unable to assess neck veins due to body habitus. Heart: Distant heart sounds, RRR Lungs: Distant lung sounds, inspir wheeze Abdomen: Normal bowel sounds. Obese, distended/taut Extremities: No edema. No clubbing or cyanosis. Pulses: radial=2/4, posterior tibial=2/4, dorsalis pedis = 2/4. NEURO: No focal deficits. PSYCH: Normal. Results & Data ([facility]) Vital Signs (Past 12 Hours) Vital Signs Temp Pulse Pulse Resp BP BP Pulse Ox 03/23/21 06:44 37.4 C 90 20 137/90 92 03/23/21 02:46 90 18 129/94 90 03/23/21 01:42 03/23/21 01:40 37.4 C 100 H 18 127/71 90 03/22/21 22:00 89 18 127/83 93 Pulse Ox 03/23/21 06:44 03/23/21 02:46 03/23/21 01:42 90 03/23/21 01:40 03/22/21 22:00
[2021-03-23] MEDS: FUROSEMIDE 40 MG/4 ML VIAL IV SCH (08:35)
[2021-03-23] MEDS: ENOXAPARIN INJ 40 MG/0.4 ML SYR SQ SCH ×2 (08:36→19:59)
[2021-03-23] MEDS: LOSARTAN POTASSIUM 50 MG TAB PO SCH (08:36)
[2021-03-23] MEDS: FLUTICASONE/VILANTEROL 100/25MCG 14 PUFFS/INHALER INH SCH (12:04)
--- NOTE | 2021-03-23 19:05 | Hospitalist Progress Note ---
Date of Service March 23, 2021 Assessment & Plan (1) Acute CHF (congestive heart failure): Plan: Patient is a 60 yr male who presents with shortness of breath and found to have pulmonary edema. Acute diastolic heart failure Pulmonary edema -CXR:Mild pulmonary edema. -ECHO: No significant valvular pathology. EF 60 to 65%. Left ventricle systolic function is normal. Right ventricular systolic function is normal. Continue IV Lasix 40 mg twice daily>>> transition to Lasix 40 mg daily Continue low-sodium diet, fluid restriction Monitor I's and O's, daily weight Appreciate cardiology input Needs follow up with Cardiology upon discharge Plan to be started on lisinopril upon discharge Needs BMP in 1 week upon discharge Hypoxia Likely Multifactorial: CHF, COPD, atelectasis History of COPD Nocturnal oximetry: Needs 3 L at bedtime --CTA:No CTA evidence for pulmonary embolus. Very minimal bibasal atelectasis and evidence for left lingular atelectasis. Otherwise, no acute chest disease with no evidence for vascular congestion. Advised sleep study as outpatient to rule out JOANNE Continue supplemental oxygen as needed during day time Will get 2 step prior to discharge Incentive Spirometry Currently on 4 L supplemental oxygen Hypertensive urgency: H/O noncompliance secondary to Insurance issues Continue losartan Monitor Plan to stop losartan and start on lisinopril upon discharge as per cardiology Prolonged QTc Avoid QT prolonging drugs Hyperlipidemia: Continue statin. H/O COPD No signs of exacerbation Continue home inhalers Thrombocytopenia H/O fatty liver Monitor platelet Needs follow-up as outpatient Morbid obesity: BMI:47 DVT Px: Lovenox. SQ Code Status Full code Admission and Anticipated Discharge Date Admission Date: March 20, 2021 Subjective Patient is seen and examined at bedside States feeling well today Nausea, vomiting resolved Eager to get discharged Denies any chest pain, shortness of breath, dizziness, nausea, abdominal pain Continues to require 4 L of supplemental oxygen to maintain saturation Review of Systems Review of Systems: All systems reviewed & are unremarkable except as noted in Subjective Physical Exam Physical Exam: Physical Exam: Vitals signs as noted above General Appearance:Morbidly Obese, no apparent distress Head: normocephalic, Atraumatic Eyes: normal inspection, EOMI Neck: supple, Trachea midline Respiratory/Chest: Decreased breath sounds, CTA Cardiovascular: S1, S2, No murmur Abdomen/GI:Soft, Non tender, Bowel sounds present Extremities/Musculoskeletal:normal inspection, B/L LE edema Neurologic/Psych:AAOX3, grossly no focal neurological deficits Skin: normal color, warm Results & Data Results & Data ([facility]) Vital Signs (Past 12 Hours) Vital Signs Temp Pulse Resp BP Pulse Ox 03/23/21 16:05 82 19 129/75 94 03/23/21 12:05 36.8 C 98 H 18 124/79 94 03/23/21 10:40 80 20 95 Laboratory Results Short CBC 03/23/21 Range/Units 06:07 WBC 5.84 (4.8-10.8) K/uL Hgb 16.9 (14.0-18.0) g/dL Hct 54.0 H (42-52) % Plt Count 110 L (130-400) K/uL BMP 03/23/21 06:07 Sodium 138 Potassium 4.5 Chloride 94 L Carbon Dioxide 42 H* BUN 23 Creatinine 0.91 Glucose 126 H Calcium 10.0
[2021-03-23] MEDS: ATORVASTATIN 20 MG TAB PO SCH (19:59)
[2021-03-24] MEDS: NITROGLYCERIN 2% OINTMENT 30GM TUBE EXT SCH ×3 (01:00→12:35)
[2021-03-24 06:35] LABS: BUN Creatinine Ratio 35.3 (10-20); Calcium 10.2 mg/dl (8.5-10.1); Creatinine Clr Calc Pharmacy 115.1 ml/min; Est GFR (African American) 109.8 ml/min; Est GFR (Non-African American) 94.7 ml/min
[2021-03-24] MEDS ORDERED: FUROSEMIDE 40 MG TAB PO SCH (09:00)
[2021-03-24] MEDS: FLUTICASONE/VILANTEROL 100/25MCG 14 PUFFS/INHALER INH SCH (09:02)
[2021-03-24] MEDS: LOSARTAN POTASSIUM 50 MG TAB PO SCH (09:02)
[2021-03-24] MEDS: ENOXAPARIN INJ 40 MG/0.4 ML SYR SQ SCH (10:22)
--- NOTE | 2021-03-24 11:53 | Hospitalist Progress Note ---
Date of Service March 24, 2021 Assessment & Plan (1) Acute CHF (congestive heart failure): Plan: Patient is a 60 yr male who presents with shortness of breath and found to have pulmonary edema. Acute diastolic heart failure Pulmonary edema -CXR:Mild pulmonary edema. -ECHO: No significant valvular pathology. EF 60 to 65%. Left ventricle systolic function is normal. Right ventricular systolic function is normal. Continue IV Lasix 40 mg twice daily>>> transition to Lasix 40 mg daily Continue low-sodium diet, fluid restriction Monitor I's and O's, daily weight Appreciate cardiology input Patient reports having Insurance issues with losartan Plan to be started on lisinopril upon discharge Needs BMP in 1 week upon discharge 2 Step: Needs 3 L with rest and 4 L with activity Advised to follow-up with cardiology upon discharge Hypoxia Likely Multifactorial: CHF, COPD, atelectasis History of COPD Nocturnal oximetry: Needs 3 L at bedtime --CTA:No CTA evidence for pulmonary embolus. Very minimal bibasal atelectasis and evidence for left lingular atelectasis. Otherwise, no acute chest disease with no evidence for vascular congestion. Advised sleep study as outpatient to rule out JOANNE Continue supplemental oxygen as needed during day time Incentive Spirometry 2 Step: Needs 3 L with rest and 4 L with activity Hypertensive urgency: H/O noncompliance secondary to Insurance issues Continue losartan Monitor Plan to stop losartan and start on lisinopril upon discharge as per cardiology Prolonged QTc Avoid QT prolonging drugs Hyperlipidemia: Continue statin. H/O COPD No signs of exacerbation Continue home inhalers Thrombocytopenia H/O fatty liver Monitor platelet Needs follow-up as outpatient Morbid obesity: BMI:47 DVT Px: Lovenox. SQ Code Status Full code Admission and Anticipated Discharge Date Admission Date: March 20, 2021 Subjective Patient is seen and examined at bedside No new complaints Family at bedside Had 2 step earlier today Denies any chest pain, shortness of breath, dizziness, nausea, abdominal pain Review of Systems Review of Systems: All systems reviewed & are unremarkable except as noted in Subjective Physical Exam Physical Exam: Physical Exam: Vitals signs as noted above General Appearance:Morbidly Obese, no apparent distress Head: normocephalic, Atraumatic Eyes: normal inspection, EOMI Neck: supple, Trachea midline Respiratory/Chest: Decreased breath sounds, CTA Cardiovascular: S1, S2, No murmur Abdomen/GI:Soft, Non tender, Bowel sounds present Extremities/Musculoskeletal:normal inspection, B/L LE edema Neurologic/Psych:AAOX3, grossly no focal neurological deficits Skin: normal color, warm Results & Data Results & Data ([facility]) Vital Signs (Past 12 Hours) Vital Signs Temp Pulse Pulse Pulse Pulse Pulse Pulse 03/24/21 08:34 90 97 H 100 H 100 H 96 H 03/24/21 08:00 37 C 82 03/24/21 04:00 36.7 C 90 03/23/21 23:52 36.8 C 78 Pulse Resp Resp Resp Resp Resp Resp 03/24/21 08:34 88 18 18 22 22 20 03/24/21 08:00 18 03/24/21 04:00 16 03/23/21 23:52 16 Resp BP Pulse Ox Pulse Ox Pulse Ox Pulse Ox Pulse Ox 03/24/21 08:34 18 86 L 90 93 85 L 03/24/21 08:00 135/97 98 03/24/21 04:00 143/87 H 92 03/23/21 23:52 140/88 93 Pulse Ox Pulse Ox 03/24/21 08:34 90 84 L 03/24/21 08:00 03/24/21 04:00 03/23/21 23:52 Laboratory Results BMP 03/24/21 03/24/21 05:27 07:16 Sodium 139 Potassium 4.1 Chloride 93 L Carbon Dioxide 40 H BUN 30 H Creatinine 0.85 Glucose 112 H Calcium 10.2 H
--- NOTE | 2021-03-24 12:05 | Discharge Summary ---
Date of Service March 24, 2021 Admission HPI Per Admitting Provider CHIEF COMPLAINT: Shortness of breath. HISTORY OF PRESENT ILLNESS: This is a 60-year-old male with past medical history significant for hyperlipidemia, COPD, hypertension, fatty liver, hidradenitis suppurativa who presents with shortness of breath and weight gain. The patient went to family doctor today complaining of bilateral leg swelling, leg cramps, weight gain, since last 8 months. He says the shortness of breath got worse lately. He says he gained about 30 pounds in the last 8 months. His SOB getting worse and lately he is getting more short of breath even while at rest, that is the reason he went to PCP. In the PCP's office, his oxygen saturation was 86% and he was sent to the ER. In the ER, when he came in he was saturating 73%, currently on 4 liters he is saturating 96%. Resting comfortably and speaking in full sentences without any resp.distress. The patient denies any headache. No blurred visions, no earache, no runny nose, no sore throat, no cough. Appetite is good. Currently, no chest pain, no nausea, no vomiting, no abdominal pain. Normal bowel and bladder movements. In the ER , his blood pressure was running high. He takes losartan and is on Humira for hidradenitis suppurativa. Admission Exam Per Admitting Provider PHYSICAL EXAMINATION: GENERAL: The patient is morbidly obese, currently not in acute distress. VITAL SIGNS: Temperature 36.7, pulse 105, respiratory rate 18, blood pressure 150/113, oxygen 97% on 4 liters. HEENT: Pupils equal, round, and reactive to light. Oral mucosa moist. NECK: No JVD, no neck masses. CARDIOVASCULAR: S1 and S2 heard, regular rate and rhythm. No murmur, no gallop. RESPIRATORY SYSTEM: Normal AP diameter. No accessory muscle use. No wheezing, no crackles. ABDOMEN: Soft, bowel sounds present, nontender, no distention. CENTRAL NERVOUS SYSTEM: Cranial nerves II-XII grossly intact, nonfocal. EXTREMITIES: Bilateral lower extremities, +2 pedal edema present, no erythema seen. Principal Diagnosis Acute congestive heart failure Hypertensive urgency COPD Hypoxia Discharge Data Allergies Allergy/AdvReac Type Severity Reaction Status Date / Time No Known Allergies Allergy Unknown Verified 03/20/21 17:43 Consultations 03/20/21 18:51 ED Decision to Admit Stat 03/21/21 08:00 Consult Cardiology Routine Ordered Studies 03/22/21 11:47 CT angio chest PE protocol Stat Hospital Course (1) Acute CHF (congestive heart failure): Patient is a 60 yr male who presents with shortness of breath and found to have pulmonary edema. Acute diastolic heart failure Pulmonary edema -CXR:Mild pulmonary edema. -ECHO: No significant valvular pathology. EF 60 to 65%. Left ventricle systolic function is normal. Right ventricular systolic function is normal. Continue IV Lasix 40 mg twice daily>>> transition to Lasix 40 mg daily Continue low-sodium diet, fluid restriction Monitor I's and O's, daily weight Appreciate cardiology input Patient reports having Insurance issues with losartan Plan to be started on lisinopril upon discharge Needs BMP in 1 week upon discharge 2 Step: Needs 3 L with rest and 4 L with activity Advised to follow-up with cardiology upon discharge Hypoxia Likely Multifactorial: CHF, COPD, atelectasis History of COPD Nocturnal oximetry: Needs 3 L at bedtime --CTA:No CTA evidence for pulmonary embolus. Very minimal bibasal atelectasis and evidence for left lingular atelectasis. Otherwise, no acute chest disease with no evidence for vascular congestion. Advised sleep study as outpatient to rule out JOANNE Continue supplemental oxygen as needed during day time Incentive Spirometry 2 Step: Needs 3 L with rest and 4 L with activity Hypertensive urgency: H/O noncompliance secondary to Insurance issues Continue losartan Monitor Plan to stop losartan and start on lisinopril upon discharge as per cardiology Prolonged QTc Avoid QT prolonging drugs Hyperlipidemia: Continue statin. H/O COPD No signs of exacerbation Continue home inhalers Thrombocytopenia H/O fatty liver Monitor platelet Needs follow-up as outpatient Morbid obesity: BMI:47 DVT Px: Lovenox. SQ Code Status Full code Total Time Total Time Spent Total Time Spent (In Minutes): 45 minutes Discharge Plan Discharge Items Patient Disposition: Home - Self-Care Reason For Visit: SOB Discharge Diagnosis: Acute congestive heart failure Hypertensive urgency COPD Hypoxia Activity: Per Instructions section Exercise/Sports: Gradually increase as tolerated Non-emergency contact: Primary Care Provider and Mechanical Technologist Call non-emergency contact if: you have any medication questions, your symptoms worsen, your pain is concerning for you and you have a fever Follow-up/Referrals: Benjamin Pagan MD [Primary Care Provider] - Diet: Heart Healthy and Low Sodium (2gm) Fluids: 2000ml (8 cups) Addtl Attending Provider Instructions: Follow-up with your primary care physician Dr. Pagan in 1 week upon discharge from rehab facility Follow-up with your card stripper Dr. George in 2 to 3 weeks --- Get blood test (basic metabolic panel) in 1 week and follow-up with your physician with results. --- Use oxygen via nasal cannula 3 L at rest and 4 L with activity as advised. --- Get sleep study as outpatient as advised. Seek immediate medical attention if your symptoms reoccur or worsen Please take all medications as instructed on discharge list below. Please call if you have any questions or problems. You can reach a [facility] hospitalist on duty at [facility] 24 hours a day by calling [phone] Call your Primary Care doctor if any of the following symptoms or problems start or get worse: * Shortness of breath or difficulty breathing * Wake up at night short of breath * Chest pain * Cough * Swelling of your hands, feet, or legs * More fatigued or tired with your normal activity * Palpitations - sudden fast heart beats WEIGHT * Weigh yourself every morning after using the bathroom. * Use the same scale. * Wear the same amount of clothing. * Write your weight down on a chart. * Call your Primary Care doctor if you gain more than 2-3 pounds in 1-2 days. MEDICATIONS * Use this discharge instruction sheet for medication instructions. * Take your medications at the time your doctor ordered. * Do not skip a dose of your medicines. * If you miss a dose of medicine, take it as soon as possible, but DO NOT DOUBLE A DOSE. * Read your medicine information when you get home. * Know all of the side effects of your medicine. If in doubt, ask your pharmacist * Call your Primary Care doctor's office if you have any side effects. * Be sure all of your doctors know what medicine and herbs you take (including cold, flu, and herbal medicine). Take the following with you to your follow-up doctor appointments: * Weight Chart * Medication List * List of questions Do not drink excessive alcohol, beer or wine. Pending Studies at Discharge: No Stand-Alone Forms: My [facility], Smoking Cessation Medications and DC Order Prescriptions: New furosemide 40 mg Tablet 40 mg PO QAM Qty: 30 RF: 1 lisinopril 40 mg tablet 40 mg PO DAILY Qty: 30 RF: 1 Continued atorvastatin 20 mg tablet 20 mg PO HS RF: 0 fluticasone propion-salmeterol [Advair Diskus] 250-50 mcg/dose blister with device 1 inh inhalation DAILY RF: 0 Humira(CF) Pen 40 mg/0.4 mL pen injector kit 40 mg SUBCUT WK RF: 0 Discontinued losartan 50 mg tablet 50 mg PO DAILY RF: 0 Discharge Orders: Discharge Order (Routine); Ordered 03/24/21 Ordered By: Raj Aponte Admission Data Admit Date/Time: 03/20/21 20:05 Attending Provider: Raj Aponte Admit Provider: Piyush Irwin Primary Care Provider: Benjamin Pagan Other Providers: Piyush Irwin ; Andrey George
== END 2021-03-24 16:30 | disposition home or self-care (01) | DRG 291 ==
LOC: ED 16:41 → EDINP 20:05

== ENCOUNTER 2021-07-18 18:39 | Inpatient (IN) ==
[2021-07-18] MEDS ORDERED: ALBUT/IPRATROP 3MG/0.5MG NEB 3 ML VIAL NEB STA ×2 (18:53→19:53)
--- NOTE | 2021-07-18 18:57 | Emergency Department Note ---
Impression & Plan COPD (chronic obstructive pulmonary disease), Hypoxia ED Provider Note NAME: BARBARA SÁNCHEZ AGE: 61 SEX: M : 1960 ARRIVES VIA: Walk-In INFORMANT: Patient ED PROVIDER(S): Edd Schmidt DO CHIEF COMPLAINT: shortness of breath HPI: Patient is a 61-year-old male with past medical history of COPD, CHF, hypoxia chronically on 1 L the presents the ER for shortness of breath which has been getting worse since this past Friday. He admits to worsening cough. He has lost his sense of taste or smell. Denies any belly pain, nausea, vomiting, or diarrhea. No dysuria, urgency, or frequency. No other exacerbating or remitting factors. He has not been around anyone that he is aware of that has been sick. ROS: See above HPI for pertinent positives & negatives. A total of 10 systems reviewed and were otherwise negative. PAST MEDICAL HISTORY:See Below PAST SURGICAL HISTORY:See Below FAMILY HISTORY:See Below SOCIAL HISTORY:See Below HOME MEDICATIONS:See Below ALLERGIES:See Below VITALS:See Below PHYSICAL EXAMINATION: GENERAL: Sitting up in bed, alert, talking in full sentences, on oxygen mask at 10 L EYE EXAM: normal conjunctiva. PERRL and EOM's grossly intact. OROPHARYNX: mucous membranes are dry NECK: non-tender LUNGS: Wheezing bilaterally. Normal chest wall mechanics HEART: Distant but tachycardic, S1 normal and S2 normal ABDOMEN: abdomen soft, non-tender, normo-active bowel sounds, no masses, no rebound or guarding. UPPER EXTREMITIES: upper extremities are grossly normal. LOWER EXTREMITIES: No pitting edema. Calves are equal bilateral NEURO EXAM: Normal sensorium, cranial nerves II-XII grossly intact, normal speech, no gross weakness of arms, no gross weakness of legs. MEDICAL DECISION MAKING: Patient is a 61-year-old male who presents ER for above-stated complaint. IV was established blood was obtained. He was found to be significantly hypoxic at 56% upon arrival and was taken to the trauma bay in B1. He was placed on 10 L Oxymask. Labs show no significant leukocytosis or anemia. Mild thrombocytopenia at 122. BMP with LFTs bilirubin and troponin and lipase were normal. COVID influenza and RSV were negative. Chest x-ray was clean. He was given hour-long neb treatment. He remained initially on 10 L which was titrated down to 5 L OxiMax. He was given IV steroids. He was updated bedside. His wheezing improved as well as air exchange. Patient was discussed with the hospitalist admitted for further work-up. Triage Nursing notes reviewed. Limited review of prior medical records performed Vital Signs: reviewed and remarkable for tachy and hypoxic Differential diagnosis: Differential diagnoses includes but is not limited to pneumonia, bronchitis, COPD/Asthma exacerbation, pneumothorax, pulmonary embolism, congestive heart failure, acute coronary syndrome ER treatment provided: See below Diagnostics interpreted by me: ECG: Sinus rhythm rate of 94 Right bundle branch block Normal axis ST depressions in the V1 through V3 QTC 517 EKG without significant changes from previous Cardiac Monitoring: An order was placed for continuous cardiac monitoring. The monitor shows a rate of 90 with sinusrhythm. Laboratory studies: As stated above and show below. Imaging studies: Portable AP upright 1 view of the chest shows no focal infiltrate or pneumothorax Consultation(s): Discussed with hospitalist for further evaluation Procedures: none Critical Care: I have personally spent 32 minutes of critical care time in the direct management of this patient. This includes bedside care, interpretation of diagnostic studies, and testing, discussion with consultants, patient, and family members, and other required patient management activities. This 32 minutes is in excess of all separately billable procedures. 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 Required: No Beliefs That Will Affect Care: None marital status: Current Living Situation: Spouse Feels Safe at Home: Yes Assistive Devices: Oxygen - Continuous Allergies Allergies Allergy/AdvReac Type Severity Reaction Status Date / Time No Known Allergies Allergy Unknown Verified 07/18/21 19:50 Home Meds Home Medications Medication Instructions Recorded Confirmed atorvastatin 20 mg tablet 20 mg PO HS 12/31/17 07/18/21 adalimumab 40 mg/0.4 mL 40 mg SUBCUT WK 03/20/21 07/18/21 subcutaneous pen kit (Humira(CF) Pen) fluticasone 250 mcg-salmeterol 50 1 inh INHALATION DAILY 03/20/21 07/18/21 mcg/dose blistr powdr for inhalation (Advair Diskus) metformin 500 mg tablet 1,000 mg PO QPM 07/18/21 07/18/21 Previous Rx's Medication Instructions Recorded furosemide 40 mg tablet 40 mg PO QAM #30 tab 03/24/21 lisinopril 40 mg tablet 40 mg PO DAILY #30 tab 03/24/21 Results & Data (ED) Vital Signs Vital Signs - 24 hr 07/18/21 18:45 07/18/21 19:08 07/18/21 19:09 Temperature 36.9 C Temperature Source Temporal Artery Scan Pulse Rate 108 H Pulse Rate [Right Finger] 96 H Pulse Rhythm [Right Finger] Pulse Strength [Right Finger] Respiratory Rate 22 18 Respiratory Effort / Characteristics Non-Labored Spontaneous Non-Labored Spontaneous Respiratory Depth Normal Normal Respiratory Pattern Blood Pressure 133/77 Blood Pressure [Right Arm] 154/93 H Blood Pressure Mean 95 Blood Pressure Mean [Right Arm] 113 Blood Pressure Position [Right Arm] Pulse Oximetry 56 L 98 98 Oxygen Delivery Method Room Air Nebulizer Oxymask Oxygen Flow Rate 10 Sepsis Recent Fever Within 48 Hours No Sepsis New/Unexplained Change in Mental Status N/A Sepsis Action Taken by Nursing No Action Required 07/18/21 19:22 07/18/21 19:29 07/18/21 19:31 Temperature Temperature Source Pulse Rate Pulse Rate [Right Finger] 98 H 100 H Pulse Rhythm [Right Finger] Pulse Strength [Right Finger] Respiratory Rate 13 16 Respiratory Effort / Characteristics Respiratory Depth Respiratory Pattern Blood Pressure Blood Pressure [Right Arm] 138/102 H 157/90 H Blood Pressure Mean Blood Pressure Mean [Right Arm] 114 112 Blood Pressure Position [Right Arm] Pulse Oximetry 98 97 Oxygen Delivery Method Oxymask Oxymask Oxygen Flow Rate 8 8 Sepsis Recent Fever Within 48 Hours Sepsis New/Unexplained Change in Mental Status Sepsis Action Taken by Nursing 07/18/21 19:39 07/18/21 20:03 07/18/21 20:15 Temperature Temperature Source Pulse Rate Pulse Rate [Right Finger] 99 H 104 H Pulse Rhythm [Right Finger] Pulse Strength [Right Finger] Respiratory Rate 16 16 Respiratory Effort / Characteristics Respiratory Depth Respiratory Pattern Blood Pressure Blood Pressure [Right Arm] 124/100 153/87 H Blood Pressure Mean Blood Pressure Mean [Right Arm] 108 109 Blood Pressure Position [Right Arm] Pulse Oximetry 96 97 95 Oxygen Delivery Method Oxymask Nebulizer Oxymask Oxygen Flow Rate 6 5 Sepsis Recent Fever Within 48 Hours Sepsis New/Unexplained Change in Mental Status Sepsis Action Taken by Nursing 07/18/21 22:00 Temperature Temperature Source Pulse Rate Pulse Rate [Right Finger] 91 H Pulse Rhythm [Right Finger] Regular Pulse Strength [Right Finger] Normal Respiratory Rate 18 Respiratory Effort / Characteristics Non-Labored Spontaneous Respiratory Depth Normal Respiratory Pattern Regular Blood Pressure Blood Pressure [Right Arm] 134/91 Blood Pressure Mean Blood Pressure Mean [Right Arm] 105 Blood Pressure Position [Right Arm] Lying Pulse Oximetry 95 Oxygen Delivery Method Room Air Oxygen Flow Rate Sepsis Recent Fever Within 48 Hours Sepsis New/Unexplained Change in Mental Status Sepsis Action Taken by Nursing Laboratory Data Result diagrams: 07/18/21 19:00 07/18/21 19:00 Lab Results 07/18/21 07/18/21 07/18/21 Range/Units 19:00 19:00 21:35 WBC 5.41 (4.8-10.8) K/uL RBC 4.53 L (4.7-6.1) M/uL Hgb 14.0 (14.0-18.0) g/dL Hct 43.0 (42-52) % MCV 94.9 (80-100) fL MCH 30.9 (25-34) pg MCHC 32.6 (32-36) g/dL RDW Std Deviation 51.3 H (36.4-46.3) fL RDW Coeff of Tiffany 14.6 H (11.5-14.5) % Plt Count 122 L (130-400) K/uL MPV 12.3 H (7.4-10.4) fL Immature Gran % (Auto) 0.2 % Neut % (Auto) 49.5 % Lymph % (Auto) 39.0 % [place] % (Auto) 9.1 % Eos % (Auto) 1.8 % Baso % (Auto) 0.4 % Neut # (Auto) 2.68 (1.4-6.5) K/uL Lymph # (Auto) 2.11 (1.2-3.4) K/uL [place] # (Auto) 0.49 (0.11-0.59) K/uL Eos # (Auto) 0.10 (0-0.5) K/uL Baso # (Auto) 0.02 (0-0.2) K/uL Immature Gran # (Auto) 0.01 (0.00-0.02) K/uL Platelet Estimate Decreased L (Normal) Sodium 139 (136-145) mmol/L Potassium 3.8 (3.5-5.1) mmol/L Chloride 94 L (98-107) mmol/L Carbon Dioxide 38 H (21-32) mmol/L Anion Gap 7 (3-11) BUN 22 (6-23) mg/dl Creatinine 1.09 (0.6-1.4) mg/dl Est Cr Clr Drug Dosing 91.3 ml/min Est GFR ( Amer) 84.5 ml/min Est GFR (Non-Af Amer) 72.9 ml/min BUN/Creatinine Ratio 20.2 H (10-20) Glucose 139 H (70-99(Fasting)) mg/dl Calcium 9.9 (8.5-10.1) mg/dl Total Bilirubin 0.7 (0.2-1.0) mg/dl AST 21 (13-39) U/L ALT 28 (7-52) U/L Alkaline Phosphatase 44 (34-104) U/L Troponin I High Sens 8.3 (0-20) pg/ml Total Protein 7.5 (6.0-8.3) gm/dl Albumin 4.5 (3.4-5.0) gm/dl Globulin 3.0 (2.5-4.0) gm/dl Albumin/Globulin Ratio 1.5 (0.9-2) Lipase 27 (11-82) U/L SARS-CoV-2 (PCR) NEGATIVE (Negative) Influenza Type A (PCR) Negative (Neg) Influenza Type B (PCR) Negative (Neg) RSV (RT-PCR) Negative (Neg) Administered Medications Discontinued Medications Albuterol (Albut/Ipratrop 3mg/0.5mg Neb 3 Ml Vial) 6 ml NEB NOW STA; Protocol Stop: 07/18/21 18:54 Last Admin: 07/18/21 19:02 Dose: 6 ml Documented by: [id number] Albuterol (Albut/Ipratrop 3mg/0.5mg Neb 3 Ml Vial) 3 ml NEB NOW STA; Protocol Stop: 07/18/21 19:54 Last Admin: 07/18/21 19:58 Dose: 3 ml Documented by: [id number] Methylprednisolone (Methylprednisolone 40 Mg/Ml Vial) 40 mg IV NOW STA Stop: 07/18/21 18:54 Last Admin: 07/18/21 19:02 Dose: 40 mg Documented by: [id number] Imaging Data Radiologist's Impression: Chest X-Ray 07/18/21 18:54 SINGLE VIEW CHEST CLINICAL HISTORY: Atypical chest pain. FINDINGS: 2 AP, portable, upright chest radiographs are compared to chest x-ray and chest CT dated 03/22/2021. The heart is mildly enlarged noting atherosclerotic calcification of the thoracic aorta. The pulmonary vasculature is noncongested. Emphysema and chronic interstitial thickening is similar to previous. Scarring/atelectasis is present at both lung bases. No airspace consolidation or large pleural effusion is identified. No pneumothorax is seen. The bony thorax is grossly intact. IMPRESSION: Mild cardiomegaly and emphysema with no acute cardiopulmonary abn ormality identified. ACT 112: Negative or not required by law. Electronically signed by: Víctor Spear M.D. 07/18/2021 7:27 PM Discharge Plan Visit Data Chief Complaint: Shortness of Breath/Dyspnea Stated Complaint: SHORTNESS OF BREATH ED Provider: Edd Schmidt Discharge Problem: COPD (chronic obstructive pulmonary disease), Hypoxia Forms Stand Alone Forms: My [facility] [employer] Prescriptions Prescriptions: No Action atorvastatin 20 mg tablet 20 mg PO HS RF: 0 fluticasone propion-salmeterol [Advair Diskus] 250-50 mcg/dose blister with device 1 inh inhalation DAILY RF: 0 Humira(CF) Pen 40 mg/0.4 mL pen injector kit 40 mg SUBCUT WK RF: 0 furosemide 40 mg Tablet 40 mg PO QAM Qty: 30 RF: 1 lisinopril 40 mg tablet 40 mg PO DAILY Qty: 30 RF: 1 metformin 500 mg tablet 1,000 mg PO QPM RF: 0 Referrals Referrals: Benjamin Pagan MD [Primary Care Provider] -
--- NOTE | 2021-07-18 19:28 | XRay Report ---
SINGLE VIEW CHEST CLINICAL HISTORY: Atypical chest pain. FINDINGS: 2 AP, portable, upright chest radiographs are compared to chest x-ray and chest CT dated 11/2021. The heart is mildly enlarged noting atherosclerotic calcification of the thoracic aorta. The pulmonary vasculature is noncongested. Emphysema and chronic interstitial thickening is similar to p revious. Scarring/atelectasis is present at both lung bases. No airspace consolidation or large pleur al effusion is identified. No pneumothorax is seen. The bony thorax is grossly intact. IMPRESSION: Mild cardiomegaly and emphysema with no acute cardiopulmonary abnormality identified. ACT 112: Negative or not required by law. Electronically signed by: Víctor Spear M.D. 07/18/2021 7:27 PM
[2021-07-18 19:44] LABS: Basophils # (auto) 0.02 K/uL (0-0.2); Basophils % (auto) 0.4 %; Eosinophils % (auto) 1.8 %; Immature Granulocytes # (auto) 0.01 K/uL (0.00-0.02); Immature Granulocytes % (auto) 0.2 %; Lymphocytes # (auto) 2.11 K/uL (1.2-3.4); Mean Corpuscular Hemoglobin 30.9 pg (25-34); Mean Corpuscular Hgb Conc 32.6 g/dL (32-36); Mean Corpuscular Volume 94.9 fL (80-100); Mean Platelet Volume 12.3 fL (7.4-10.4); Monocytes # (auto) 0.49 K/uL (0.11-0.59); Monocytes % (auto) 9.1 %; Neutrophils # (auto) 2.68 K/uL (1.4-6.5); Neutrophils % (auto) 49.5 %; Platelet Count 122 K/uL (130-400); Platelet Estimate Decreased (Normal); RDW Coefficient of Variation 14.6 % (11.5-14.5); RDW Standard Deviation 51.3 fL (36.4-46.3); Red Blood Count 4.53 M/uL (4.7-6.1); White Blood Count 5.41 K/uL (4.8-10.8)
[2021-07-18 19:49] LABS: Troponin I High Sensitivity 8.3 pg/ml (0-20)
[2021-07-18 19:54] LABS: Albumin Globulin Ratio 1.5 (0.9-2); Albumin Level 4.5 gm/dl (3.4-5.0); BUN Creatinine Ratio 20.2 (10-20); Bilirubin,Total 0.7 mg/dl (0.2-1.0); Calcium 9.9 mg/dl (8.5-10.1); Creatinine Clr Calc Pharmacy 91.3 ml/min; Est GFR (African American) 84.5 ml/min; Est GFR (Non-African American) 72.9 ml/min; Potassium 3.8 mmol/L (3.5-5.1); Total Protein 7.5 gm/dl (6.0-8.3)
[2021-07-18 22:28] LABS: Influenza A virus by PCR Negative (Neg); Influenza B virus by PCR Negative (Neg); RSV by PCR Negative (Neg); SARS CoV2 RNA(COVID-19) InHosp NEGATIVE (Negative)
[2021-07-19] MEDS ORDERED: NITROGLYCERIN SL 0.4 MG/TAB TAB SL PRN (03:01)
[2021-07-19] MEDS ORDERED: XOPENEX/ATROVENT 1.25mg/0.5MG NEB COMBO NEB SCH (03:01)
[2021-07-19] MEDS ORDERED: ACETAMINOPHEN 325 MG TAB PO PRN (03:01)
[2021-07-19] MEDS ORDERED: DEXTROSE 50% 50 ML SYRINGE IV PRN (03:45)
[2021-07-19] MEDS ORDERED: CARBOHYDRATES FOR HYPOGLYCEMIA PO PRN (03:45)
[2021-07-19] MEDS ORDERED: GLUCOSE 40% GEL 15 GM TUBE PO PRN (03:45)
[2021-07-19] MEDS ORDERED: GLUCOSE 10 TABS/TUBE PO PRN (03:45)
[2021-07-19] MEDS ORDERED: GLUCAGON FOR INJ 1 MG VIAL IM PRN (03:45)
[2021-07-19] MEDS: LEVALBUTEROL HCL 1.25 MG/3 ML NEB NEB PRN ×2 (03:49→07:02)
[2021-07-19] MEDS: IPRATROPIUM BROMIDE NEB SOLN 0.02% 2.5 ML VIAL INH SCH ×4 (03:49→19:19)
[2021-07-19] MEDS: LEVALBUTEROL 1.25MG/0.5ML NEB INH SCH ×4 (03:50→19:19)
[2021-07-19] MEDS: methylPREDNISolone 40 MG in SYRINGE 0 ML IV SCH ×3 (04:14→19:29)
--- NOTE | 2021-07-19 07:51 | History and Physical Report ---
DATE OF ADMISSION: 07/18/2021. CHIEF COMPLAINT: Shortness of breath. HISTORY OF PRESENT ILLNESS: A 61-year-old male with past medical history significant for chronic hypoxemic respiratory failure, type 2 diabetes, mixed hyperlipidemia, COPD, interstitial lung disease, chronic diastolic CHF, hypertension, history of QT prolongation, morbid obesity, fatty liver, hidradenitis suppurativa, comes with also shortness of breath. The patient was in the hospital in March of this year with acute diastolic CHF and has also COPD and he was discharged on 3 liters oxygen with rest and 4 liters with activity, but the patient states he was told recently to do 1 liter at rest and 3 liters with activity. Last week, he had mowed grass and then after that he thinks since last Friday he was feeling short of breath and cough and it was progressively worsening and he increased the oxygen to 2 liters, but when the EMS arrived, he was saturating only 50%. Initially, he was placed on 10lt OxyMask and after nebs and steroids, currently on 5 liters OxyMask, and is saturating okay. Resting comfortably, he is feeling better. He is bringing up whitish phlegm. Denies any fever or chills. No chest pain, no headache, no neck pain, no back pain, no leg pains. No earaches, no runny nose, no sore throat. No blurred visions. No nausea, no chest pain, no abdominal pain, no diarrhea or constipation. Normal bowel movements. Normal bladder movements. Ambulating okay. Lives with his . ALLERGIES: No known drug allergies. PAST MEDICAL HISTORY: As mentioned above. PAST SURGICAL HISTORY: Colonoscopy, drainage of rectal abscess, rectal cyst removed, fistulectomy, appendectomy, excision of malignant scalp and neck. MEDICATIONS: The patient is on atorvastatin 20 mg p.o. at bedtime, Advair Diskus one inhalation daily, furosemide 40 mg p.o. daily, Humira subcutaneous weekly, lisinopril 40 mg p.o. daily, metformin 1000 mg p.o. p.m. FAMILY HISTORY: Significant for brother had colon cancer, diabetes, heart disorder; sister has [place]; father has stroke. SOCIAL HISTORY: , former smoker, quit in 2017, smoked 1 pack a day for 30 years. No alcohol use. No drug use. REVIEW OF SYSTEMS: As per HPI. Rest of review of systems is negative. PHYSICAL EXAMINATION: GENERAL: The patient is of moderate build, not in acute distress. VITAL SIGNS: Temperature 36.8, pulse 93, respiratory rate 18, blood pressure 154/77, oxygen currently 96% on 4 liters OxyMask. HEENT: No pallor, no icterus. Pupils equal, round and reactive to light. Oral mucosa moist. LUNGS: No JVD, no neck masses. CARDIOVASCULAR: S1 and S2 heard. Regular rate and rhythm. No murmur, no gallop. RESPIRATORY SYSTEM: Normal AP diameter. No accessory muscle use. Diminished breath sounds bilaterally. No wheezing. ABDOMEN: Soft. Bowel sounds are present, nontender, no distention. CENTRAL NERVOUS SYSTEM: Cranial nerves II-XII grossly intact, nonfocal. EXTREMITIES: Trace pedal edema, no erythema seen. LABORATORY DATA: WBC 5.4, hemoglobin 14, hematocrit 43, platelets 122. Sodium 139, potassium 3.8, chloride 94, bicarbonate 38, BUN 72, creatinine 1.09, serum glucose 139, calcium 9.9, total bilirubin 0.7, AST 21, ALT 28, alkaline phosphatase 44, troponin I high sensitivity 8.3, lipase 22. SARS-CoV-2 PCR negative. Influenza A and B PCR negative. RSV PCR negative. SARS-CoV-2 RNA rapid test negative. IMAGING DATA: Chest x-ray, mild cardiomegaly and emphysema with no acute cardiopulmonary abnormality identified. EKG: Normal sinus rhythm, heart rate 94. Right bundle-branch block, QTc of 517. ASSESSMENT AND PLAN: This is a 61-year-old male who presents with shortness of breath. 1. Shortness of breath and chronic obstructive pulmonary disease exacerbation: Acute on chronic respiratory failure.Continue his Advair Diskus and nebs around the clock and p.r.n.iv solumedrol 40 t.i.d., p.o. doxycycline. Monitor in the med tele floor. Also needs two step prior to discharge. 2. Chronic diastolic congestive heart failure: Continue home Lasix and lisinopril. Will monitor for any volume overload. 3. Diabetes: Hold metformin. Placed on insulin sliding scale and Lantus. Monitor the blood sugar while the patient is getting steroids. 4. Hyperlipidemia: On statin. 5. Morbid obesity: Needs counseling. Needs sleep study as outpatient. 6. History of QT prolongation: QTc of 517. Avoid QT prolonging drugs. Follow repeat EKG in the a.m. 7. Hypertension: On lisinopril and furosemide. Will monitor the blood pressure. 8. Thrombocytopenia, chronic: Needs followup. 9. Deep venous thrombosis prophylaxis: Lovenox. DISPOSITION: Closely monitor in the tele floor. Level 1 full code. Expect to discharge home and follow with family doctor. Job ID: [id number] [facility]
[2021-07-19] MEDS: lisinopril 40 MG TAB PO SCH (09:05)
[2021-07-19] MEDS: DOXYCYCLINE HYCLATE 100 MG CAP PO SCH ×2 (09:05→20:32)
[2021-07-19] MEDS: FUROSEMIDE 40 MG TAB PO SCH (09:05)
[2021-07-19] MEDS: ENOXAPARIN INJ 40 MG/0.4 ML SYR SQ SCH ×2 (09:07→20:31)
[2021-07-19] MEDS: FLUTICASONE/VILANTEROL 200/25MCG 14 PUFFS/INHALER INH SCH (09:07)
[2021-07-19] MEDS: INSULIN ASPART PER UNIT SC SCH ×4 (09:09→20:35)
[2021-07-19] MEDS: INSULIN GLARGINE SOLOSTAR 100 UNITS/ML 3 ML PEN SC SCH (09:09)
[2021-07-19] MEDS ORDERED: POTASSIUM CHLORIDE CRTAB 20 MEQ TABCR PO STA (09:30)
--- NOTE | 2021-07-19 17:35 | Hospitalist Progress Note ---
Date of Service July 19, 2021 Assessment & Plan (1) COPD (chronic obstructive pulmonary disease): (2) Acute and chronic respiratory failure with hypoxia: Plan: This is a 61-year-old male who presents with shortness of breath. 1. Shortness of breath and chronic obstructive pulmonary disease exacerbation: Acute on chronic respiratory failure. Continue his Advair Diskus and nebs around the clock and p.r.n., iv solumedrol 40 t.i.d., p.o. doxycycline. Monitor in the med tele floor. Also needs two step prior to discharge. 2. Chronic diastolic congestive heart failure: Continue home Lasix and lisinopril. Will monitor for any volume overload. 3. Diabetes: Hold metformin. Placed on insulin sliding scale and Lantus. Monitor the blood sugar while the patient is getting steroids. 4. Hyperlipidemia: On statin. 5. Morbid obesity: Needs counseling. Needs sleep study as outpatient. 6. History of QT prolongation: QTc of 517. Avoid QT prolonging drugs. 7. Hypertension: On lisinopril and furosemide. Will monitor the blood pressure. 8. Thrombocytopenia, chronic: Needs followup. DVT prophylaxis: Lovenox. DISPOSITION:tele floor. Code: Full code Admission and Anticipated Discharge Date Admission Date: July 19, 2021 Subjective Patient seen in follow-up for hypoxic respiratory failure, likely secondary to COPD exacerbation Currently patient is sitting in chair, in no acute distress He is using 5 L of O2 via nasal cannula Says his breathing is better now Per RN, patient desaturates with sleeping Patient denies fevers, chills, chest pain, significant cough, abdominal pain, nausea or vomiting Review of Systems Review of Systems: All systems reviewed & are unremarkable except as noted in Subjective Physical Exam Physical Exam: GENERAL: obese M (BMI 46) sitting up in chair, not in acute distress. on NC 5L HEENT: NC/AT, EOMI, PERRL, Oral mucosa moist. LUNGS: No JVD, no neck masses. CARDIOVASCULAR: S1 and S2 heard. Regular rate and rhythm. No murmur, no gallop. RESPIRATORY SYSTEM: Normal AP diameter. No accessory muscle use. Diminished breath sounds bilaterally. minimal exp. wheezing. ABDOMEN: Soft. Bowel sounds are present, obese, nontender, no distention. NEURO:Alert oriented, answering questions appropriately, no facial asymmetry, speech fluent, moves extremities EXTREMITIES: Trace pedal edema, no erythema seen. Results & Data Results & Data ([facility]) Vital Signs (Past 12 Hours) Vital Signs Temp Pulse Pulse Resp BP BP Pulse Ox 07/19/21 16:55 158/99 H 07/19/21 16:00 93 H 29 H 92 07/19/21 15:00 95 H 23 93 07/19/21 14:00 111 H 28 H 91 07/19/21 13:44 151/97 H 07/19/21 13:43 108 H 20 151/97 H 90 07/19/21 13:00 106 H 19 97 07/19/21 12:51 107 H 18 93 07/19/21 12:00 130 H 32 H 07/19/21 11:00 82 21 86 L 07/19/21 10:00 101 H 23 93 07/19/21 09:00 87 23 87 L 07/19/21 08:00 103 H 22 91 07/19/21 07:32 36.4 C L 102 H 18 140/92 90 07/19/21 07:16 86 23 140/92 95 07/19/21 07:02 88 20 96 07/19/21 07:00 87 24 96 07/19/21 06:01 89 20 174/98 H 89 L 07/19/21 06:00 95 H 19 86 L Laboratory Results 07/19/21 07/19/21 07/19/21 Range/Units 16:12 11:02 07:18 WBC (4.8-10.8) K/uL RBC (4.7-6.1) M/uL Hgb (14.0-18.0) g/dL Hct (42-52) % MCV (80-100) fL MCH (25-34) pg MCHC (32-36) g/dL RDW Std Deviation (36.4-46.3) fL RDW Coeff of Tiffany (11.5-14.5) % Plt Count (130-400) K/uL MPV (7.4-10.4) fL Immature Gran % (Auto) % Neut % (Auto) % Lymph % (Auto) % [place] % (Auto) % Eos % (Auto) % Baso % (Auto) % Neut # (Auto) (1.4-6.5) K/uL Lymph # (Auto) (1.2-3.4) K/uL [place] # (Auto) (0.11-0.59) K/uL Eos # (Auto) (0-0.5) K/uL Baso # (Auto) (0-0.2) K/uL Immature Gran # (Auto) (0.00-0.02) K/uL Platelet Estimate (Normal) Sodium (136-145) mmol/L Potassium (3.5-5.1) mmol/L Chloride (98-107) mmol/L Carbon Dioxide (21-32) mmol/L Anion Gap (3-11) BUN (6-23) mg/dl Creatinine (0.6-1.4) mg/dl Est Cr Clr Drug Dosing ml/min Est GFR ( Amer) ml/min Est GFR (Non-Af Amer) ml/min BUN/Creatinine Ratio (10-20) Glucose (70-99(Fasting)) mg/dl POC Glucose 144 H 162 H 161 H (70-99) mg/dl Calcium (8.5-10.1) mg/dl Total Bilirubin (0.2-1.0) mg/dl AST (13-39) U/L ALT (7-52) U/L Alkaline Phosphatase (34-104) U/L Troponin I High Sens (0-20) pg/ml Total Protein (6.0-8.3) gm/dl Albumin (3.4-5.0) gm/dl Globulin (2.5-4.0) gm/dl Albumin/Globulin Ratio (0.9-2) Lipase (11-82) U/L Nasal Screen MRSA (PCR) (Negative) SARS-CoV-2 (PCR) (Negative) Influenza Type A (PCR) (Neg) Influenza Type B (PCR) (Neg) RSV (RT-PCR) (Neg) SARS-CoV-2, RNA, NAAT (NEGATIVE) 07/19/21 07/18/21 07/18/21 Range/Units 02:45 21:35 19:03 WBC (4.8-10.8) K/uL RBC (4.7-6.1) M/uL Hgb (14.0-18.0) g/dL Hct (42-52) % MCV (80-100) fL MCH (25-34) pg MCHC (32-36) g/dL RDW Std Deviation (36.4-46.3) fL RDW Coeff of Tiffany (11.5-14.5) % Plt Count (130-400) K/uL MPV (7.4-10.4) fL Immature Gran % (Auto) % Neut % (Auto) % Lymph % (Auto) % [place] % (Auto) % Eos % (Auto) % Baso % (Auto) % Neut # (Auto) (1.4-6.5) K/uL Lymph # (Auto) (1.2-3.4) K/uL [place] # (Auto) (0.11-0.59) K/uL Eos # (Auto) (0-0.5) K/uL Baso # (Auto) (0-0.2) K/uL Immature Gran # (Auto) (0.00-0.02) K/uL Platelet Estimate (Normal) Sodium (136-145) mmol/L Potassium (3.5-5.1) mmol/L Chloride (98-107) mmol/L Carbon Dioxide (21-32) mmol/L Anion Gap (3-11) BUN (6-23) mg/dl Creatinine (0.6-1.4) mg/dl Est Cr Clr Drug Dosing ml/min Est GFR ( Amer) ml/min Est GFR (Non-Af Amer) ml/min BUN/Creatinine Ratio (10-20) Glucose (70-99(Fasting)) mg/dl POC Glucose (70-99) mg/dl Calcium (8.5-10.1) mg/dl Total Bilirubin (0.2-1.0) mg/dl AST (13-39) U/L ALT (7-52) U/L Alkaline Phosphatase (34-104) U/L Troponin I High Sens (0-20) pg/ml Total Protein (6.0-8.3) gm/dl Albumin (3.4-5.0) gm/dl Globulin (2.5-4.0) gm/dl Albumin/Globulin Ratio (0.9-2) Lipase (11-82) U/L Nasal Screen MRSA (PCR) Negative (Negative) SARS-CoV-2 (PCR) NEGATIVE (Negative) Influenza Type A (PCR) Negative (Neg) Influenza Type B (PCR) Negative (Neg) RSV (RT-PCR) Negative (Neg) SARS-CoV-2, RNA, NAAT NEGATIVE (NEGATIVE) 07/18/21 07/18/21 Range/Units 19:00 19:00 WBC 5.41 (4.8-10.8) K/uL RBC 4.53 L (4.7-6.1) M/uL Hgb 14.0 (14.0-18.0) g/dL Hct 43.0 (42-52) % MCV 94.9 (80-100) fL MCH 30.9 (25-34) pg MCHC 32.6 (32-36) g/dL RDW Std Deviation 51.3 H (36.4-46.3) fL RDW Coeff of Tiffany 14.6 H (11.5-14.5) % Plt Count 122 L (130-400) K/uL MPV 12.3 H (7.4-10.4) fL Immature Gran % (Auto) 0.2 % Neut % (Auto) 49.5 % Lymph % (Auto) 39.0 % [place] % (Auto) 9.1 % Eos % (Auto) 1.8 % Baso % (Auto) 0.4 % Neut # (Auto) 2.68 (1.4-6.5) K/uL Lymph # (Auto) 2.11 (1.2-3.4) K/uL [place] # (Auto) 0.49 (0.11-0.59) K/uL Eos # (Auto) 0.10 (0-0.5) K/uL Baso # (Auto) 0.02 (0-0.2) K/uL Immature Gran # (Auto) 0.01 (0.00-0.02) K/uL Platelet Estimate Decreased L (Normal) Sodium 139 (136-145) mmol/L Potassium 3.8 (3.5-5.1) mmol/L Chloride 94 L (98-107) mmol/L Carbon Dioxide 38 H (21-32) mmol/L Anion Gap 7 (3-11) BUN 22 (6-23) mg/dl Creatinine 1.09 (0.6-1.4) mg/dl Est Cr Clr Drug Dosing 91.3 ml/min Est GFR ( Amer) 84.5 ml/min Est GFR (Non-Af Amer) 72.9 ml/min BUN/Creatinine Ratio 20.2 H (10-20) Glucose 139 H (70-99(Fasting)) mg/dl POC Glucose (70-99) mg/dl Calcium 9.9 (8.5-10.1) mg/dl Total Bilirubin 0.7 (0.2-1.0) mg/dl AST 21 (13-39) U/L ALT 28 (7-52) U/L Alkaline Phosphatase 44 (34-104) U/L Troponin I High Sens 8.3 (0-20) pg/ml Total Protein 7.5 (6.0-8.3) gm/dl Albumin 4.5 (3.4-5.0) gm/dl Globulin 3.0 (2.5-4.0) gm/dl Albumin/Globulin Ratio 1.5 (0.9-2) Lipase 27 (11-82) U/L Nasal Screen MRSA (PCR) (Negative) SARS-CoV-2 (PCR) (Negative) Influenza Type A (PCR) (Neg) Influenza Type B (PCR) (Neg) RSV (RT-PCR) (Neg) SARS-CoV-2, RNA, NAAT (NEGATIVE) Medications Administered Current Inpatient Medications Acetaminophen (Acetaminophen 325 Mg Tab) 650 mg PO Q4H PRN PRN Reason: Pain or Fever Stop: 08/18/21 03:00 Atorvastatin Calcium (Atorvastatin 20 Mg Tab) 20 mg PO HS RODRÍGUEZ Stop: 08/18/21 20:59 Dextrose (Dextrose 50% 50 Ml Syringe) 25 - 50 ml IV UD PRN; Protocol PRN Reason: Hypoglycemia Protocol Stop: 08/18/21 03:44 Doxycycline Hyclate (Doxycycline Hyclate 100 Mg Cap) 100 mg PO BID RODRÍGUEZ Stop: 07/26/21 08:59 Last Admin: 07/19/21 09:05 Dose: 100 mg Documented by: Enoxaparin Sodium (Enoxaparin Inj 40 Mg/0.4 Ml Syr) 40 mg SQ Q12H RODRÍGUEZ Stop: 08/18/21 08:59 Last Admin: 07/19/21 09:07 Dose: 40 mg Documented by: Fluticasone/Vilanterol (Fluticasone/Vilanterol 200/25mcg 14 Puffs/Inhaler) 1 puffs INH DAILY RODRÍGUEZ Stop: 08/18/21 08:59 Last Admin: 07/19/21 09:07 Dose: 1 puffs Documented by: Furosemide (Furosemide 40 Mg Tab) 40 mg PO QAM RODRÍGUEZ Stop: 08/18/21 08:59 Last Admin: 07/19/21 09:05 Dose: 40 mg Documented by: Glucagon (Glucagon For Inj 1 Mg Vial) 1 mg IM UD PRN; Protocol PRN Reason: Hypoglycemia Protocol Stop: 08/18/21 03:44 Glucose (Glucose 40% Gel 15 Gm Tube) 15 - 30 gm PO UD PRN; Protocol PRN Reason: Hypoglycemia Protocol Stop: 08/18/21 03:44 Glucose (Glucose 10 Tabs/Tube) 4 - 8 tabs PO UD PRN; Protocol PRN Reason: Hypoglycemia Protocol Stop: 08/18/21 03:44 Methylprednisolone 40 mg/ (Syringe) 0.64 mls @ 1.5 mls/min IV Q8H [facility] Stop: 08/18/21 03:59 Last Admin: 07/19/21 12:21 Dose: 1.5 mls/min Documented by: Insulin Aspart (Insulin Aspart Per Unit) 0 units SC ACHS [facility] Stop: 08/18/21 07:29 Last Admin: 07/19/21 16:15 Dose: Not Given Documented by: Insulin Glargine (Insulin Glargine Solostar 100 Units/Ml 3 Ml Pen) 6 units SC DAILY [facility] Stop: 08/18/21 08:59 Last Admin: 07/19/21 09:09 Dose: 6 units Documented by: Ipratropium [place] (Ipratropium [place] Neb Soln 0.02% 2.5 Ml Vial) 0.5 mg INH Q6R [facility] Stop: 08/18/21 03:00 Last Admin: 07/19/21 12:51 Dose: 0.5 mg Documented by: Levalbuterol HCl (Levalbuterol 1.25mg/0.5ml Neb) 1.25 mg INH Q6R RODRÍGUEZ Stop: 08/18/21 03:00 Last Admin: 07/19/21 12:51 Dose: 1.25 mg Documented by: Levalbuterol HCl (Levalbuterol Hcl 1.25 Mg/3 Ml Neb) 1.25 mg NEB Q4H PRN; Protocol PRN Reason: Shortness Of Breath Or Wheezing Stop: 08/18/21 03:00 Last Admin: 07/19/21 07:02 Dose: 1.25 mg Documented by: Lisinopril (Lisinopril 40 Mg Tab) 40 mg PO DAILY RODRÍGUEZ Stop: 08/18/21 08:59 Last Admin: 07/19/21 09:05 Dose: 40 mg Documented by: Miscellaneous (Carbohydrates For Hypoglycemia ) 15 - 30 gm PO UD PRN PRN Reason: Hypoglycemia Treatment Stop: 08/18/21 03:44 Nitroglycerin (Nitroglycerin Sl 0.4 Mg/Tab Tab) 0.4 mg SL UD PRN PRN Reason: Chest Pain Stop: 08/18/21 03:00 (1) COPD (chronic obstructive pulmonary disease) COPD type: unspecified COPD Qualified Code(s): J44.9 - Chronic obstructive pulmonary disease, unspecified
[2021-07-19] MEDS: ATORVASTATIN 20 MG TAB PO SCH (20:32)
[2021-07-20] MEDS: guaiFENesin 600 MG TABCR PO SCH ×3 (00:02→20:25)
[2021-07-20] MEDS: LEVALBUTEROL HCL 1.25 MG/3 ML NEB NEB PRN ×3 (00:22→13:37)
[2021-07-20] MEDS: IPRATROPIUM BROMIDE NEB SOLN 0.02% 2.5 ML VIAL INH SCH ×4 (00:22→19:41)
[2021-07-20] MEDS: LEVALBUTEROL 1.25MG/0.5ML NEB INH SCH ×4 (00:22→19:41)
[2021-07-20] MEDS: methylPREDNISolone 40 MG in SYRINGE 0 ML IV SCH ×3 (03:23→20:24)
[2021-07-20 05:52] LABS: Basophils # (auto) 0.01 K/uL (0-0.2); Basophils % (auto) 0.1 %; Hematocrit (blood only) 43.8 % (42-52); Hemoglobin 13.8 g/dL (14.0-18.0); Immature Granulocytes # (auto) 0.03 K/uL (0.00-0.02); Immature Granulocytes % (auto) 0.4 %; Lymphocytes # (auto) 1.07 K/uL (1.2-3.4); Lymphocytes % (auto) 13.1 %; Mean Corpuscular Hemoglobin 30.4 pg (25-34); Mean Corpuscular Hgb Conc 31.5 g/dL (32-36); Mean Corpuscular Volume 96.5 fL (80-100); Mean Platelet Volume 11.7 fL (7.4-10.4); Monocytes # (auto) 0.52 K/uL (0.11-0.59); Monocytes % (auto) 6.4 %; Neutrophils # (auto) 6.55 K/uL (1.4-6.5); Platelet Count 136 K/uL (130-400); RDW Coefficient of Variation 14.8 % (11.5-14.5); RDW Standard Deviation 52.7 fL (36.4-46.3); Red Blood Count 4.54 M/uL (4.7-6.1); White Blood Count 8.18 K/uL (4.8-10.8)
--- NOTE | 2021-07-20 05:54 | Electrocardiogram Report ---
Test Reason : Blood Pressure : / mmHG Vent. Rate : 094 BPM Atrial Rate : 094 BPM P-R Int : 132 ms QRS Dur : 160 ms QT Int : 414 ms P-R-T Axes : 066 065 043 degrees QTc Int : 517 ms Poor data quality, interpretation may be adversely affected Normal sinus rhythm Right bundle branch block Abnormal ECG When compared with ECG of 21-MAR-2021 09:29, No significant change Confirmed by Trey Padilla ([id number]) on 07/20/2021 5:53:59 AM Referred By: REFERRED SELF Confirmed By:Trey Padilla
--- NOTE | 2021-07-20 06:11 | Electrocardiogram Report ---
Test Reason : Blood Pressure : / mmHG Vent. Rate : 084 BPM Atrial Rate : 084 BPM P-R Int : 156 ms QRS Dur : 164 ms QT Int : 434 ms P-R-T Axes : 024 078 044 degrees QTc Int : 512 ms Normal sinus rhythm Right bundle branch block Abnormal ECG When compared with ECG of 18-JUL-2021 18:59, No significant change was found Confirmed by Trey Padilla ([id number]) on 07/20/2021 6:11:32 AM Referred By: REFERRED SELF Confirmed By:Trey Padilla
[2021-07-20 06:25] LABS: BUN Creatinine Ratio 25.8 (10-20); Calcium 10.6 mg/dl (8.5-10.1); Creatinine Clr Calc Pharmacy 105.1 ml/min; Est GFR (African American) 102.3 ml/min; Est GFR (Non-African American) 88.3 ml/min; Magnesium 2.2 mg/dl (1.7-2.4); Phosphorus 3.6 mg/dl (2.5-4.9)
[2021-07-20] MEDS: INSULIN ASPART PER UNIT SC SCH ×4 (07:56→20:40)
[2021-07-20] MEDS: lisinopril 40 MG TAB PO SCH (08:24)
[2021-07-20] MEDS: DOXYCYCLINE HYCLATE 100 MG CAP PO SCH ×2 (08:24→20:24)
[2021-07-20] MEDS: ENOXAPARIN INJ 40 MG/0.4 ML SYR SQ SCH ×2 (08:24→20:24)
[2021-07-20] MEDS: FUROSEMIDE 40 MG TAB PO SCH (08:24)
[2021-07-20] MEDS: FLUTICASONE/VILANTEROL 200/25MCG 14 PUFFS/INHALER INH SCH (08:25)
[2021-07-20] MEDS: INSULIN GLARGINE SOLOSTAR 100 UNITS/ML 3 ML PEN SC SCH (08:26)
--- NOTE | 2021-07-20 09:37 | Hospitalist Progress Note ---
Date of Service July 20, 2021 Assessment & Plan (1) COPD (chronic obstructive pulmonary disease): (2) Acute and chronic respiratory failure with hypoxia: Plan: This is a 61-year-old male who presents with shortness of breath. 1. Shortness of breath and chronic obstructive pulmonary disease exacerbation: Acute on chronic respiratory failure. Continue his Advair Diskus and nebs around the clock and p.r.n., iv solumedrol 40 t.i.d., p.o. doxycycline. Monitor in the med tele floor. Also needs two step prior to discharge. Reportedly patient also desaturates at night, should obtain a sleep study as outpatient. 2. Chronic diastolic congestive heart failure: Continue home Lasix and lisinopril. Will monitor for any volume overload. 3. Diabetes: Hold metformin. Placed on insulin sliding scale and Lantus. Monitor the blood sugar while the patient is getting steroids. 4. Hyperlipidemia: On statin. 5. Morbid obesity: Needs counseling. Needs sleep study as outpatient. 6. History of QT prolongation: QTc of 517. Avoid QT prolonging drugs. 7. Hypertension: On lisinopril and furosemide. Will monitor the blood pressure. 8. Thrombocytopenia, chronic: Needs followup. DVT prophylaxis: Lovenox. DISPOSITION:tele floor. Code: Full code Admission and Anticipated Discharge Date Admission Date: July 19, 2021 Subjective Patient seen in follow-up for hypoxic respiratory failure, likely secondary to COPD exacerbation Currently patient is sitting in chair, in no acute distress He is using 4-5 L of O2 via nasal cannula Says his breathing is better now, feeling much better Per RN, patient desaturates with sleeping Patient denies fevers, chills, chest pain, significant cough, abdominal pain, nausea or vomiting Review of Systems Review of Systems: All systems reviewed & are unremarkable except as noted in Subjective Physical Exam Physical Exam: GENERAL: obese M (BMI 46) sitting up in chair, not in acute distress. on NC 5L HEENT: NC/AT, EOMI, PERRL, Oral mucosa moist. LUNGS: No JVD, no neck masses. CARDIOVASCULAR: S1 and S2 heard. Regular rate and rhythm. No murmur, no gallop. RESPIRATORY SYSTEM: Normal AP diameter. No accessory muscle use. Diminished breath sounds bilaterally. minimal exp. wheezing. ABDOMEN: Soft. Bowel sounds are present, obese, nontender, no distention. NEURO:Alert oriented, answering questions appropriately, no facial asymmetry, speech fluent, moves extremities EXTREMITIES: Trace pedal edema, no erythema seen. Results & Data Results & Data ([facility]) Vital Signs (Past 12 Hours) Vital Signs Temp Pulse Pulse Resp BP Pulse Ox 07/20/21 08:00 78 07/20/21 07:45 84 18 89 L 07/20/21 07:38 36.3 C L 80 23 128/93 92 07/20/21 03:27 36.7 C 97 H 21 140/89 93 07/20/21 00:23 93 H 20 92 07/20/21 00:06 36.6 C 86 20 139/90 92 Laboratory Results 07/20/21 07/20/21 07/20/21 Range/Units 07:11 05:09 05:09 WBC (4.8-10.8) K/uL RBC (4.7-6.1) M/uL Hgb (14.0-18.0) g/dL Hct (42-52) % MCV (80-100) fL MCH (25-34) pg MCHC (32-36) g/dL RDW Std Deviation (36.4-46.3) fL RDW Coeff of Tiffany (11.5-14.5) % Plt Count (130-400) K/uL MPV (7.4-10.4) fL Immature Gran % (Auto) % Neut % (Auto) % Lymph % (Auto) % [place] % (Auto) % Eos % (Auto) % Baso % (Auto) % Neut # (Auto) (1.4-6.5) K/uL Lymph # (Auto) (1.2-3.4) K/uL [place] # (Auto) (0.11-0.59) K/uL Eos # (Auto) (0-0.5) K/uL Baso # (Auto) (0-0.2) K/uL Immature Gran # (Auto) (0.00-0.02) K/uL Sodium 139 (136-145) mmol/L Potassium 5.0 D (3.5-5.1) mmol/L Chloride 97 L (98-107) mmol/L Carbon Dioxide 39 H (21-32) mmol/L Anion Gap 3 (3-11) BUN 24 H (6-23) mg/dl Creatinine 0.93 (0.6-1.4) mg/dl Est Cr Clr Drug Dosing 105.1 ml/min Est GFR ( Amer) 102.3 ml/min Est GFR (Non-Af Amer) 88.3 ml/min BUN/Creatinine Ratio 25.8 H (10-20) Glucose 159 H (70-99(Fasting)) mg/dl POC Glucose 152 H (70-99) mg/dl Estimat Average Glucose Pending Hemoglobin A1c Pending Calcium 10.6 H (8.5-10.1) mg/dl Phosphorus 3.6 (2.5-4.9) mg/dl Magnesium 2.2 (1.7-2.4) mg/dl 07/20/21 07/19/21 07/19/21 Range/Units 05:09 20:27 18:02 WBC 8.18 (4.8-10.8) K/uL RBC 4.54 L (4.7-6.1) M/uL Hgb 13.8 L (14.0-18.0) g/dL Hct 43.8 (42-52) % MCV 96.5 (80-100) fL MCH 30.4 (25-34) pg MCHC 31.5 L (32-36) g/dL RDW Std Deviation 52.7 H (36.4-46.3) fL RDW Coeff of Tiffany 14.8 H (11.5-14.5) % Plt Count 136 (130-400) K/uL MPV 11.7 H (7.4-10.4) fL Immature Gran % (Auto) 0.4 % Neut % (Auto) 80.0 % Lymph % (Auto) 13.1 % [place] % (Auto) 6.4 % Eos % (Auto) 0.0 % Baso % (Auto) 0.1 % Neut # (Auto) 6.55 H (1.4-6.5) K/uL Lymph # (Auto) 1.07 L (1.2-3.4) K/uL [place] # (Auto) 0.52 (0.11-0.59) K/uL Eos # (Auto) 0.00 (0-0.5) K/uL Baso # (Auto) 0.01 (0-0.2) K/uL Immature Gran # (Auto) 0.03 H (0.00-0.02) K/uL Sodium (136-145) mmol/L Potassium (3.5-5.1) mmol/L Chloride (98-107) mmol/L Carbon Dioxide (21-32) mmol/L Anion Gap (3-11) BUN (6-23) mg/dl Creatinine (0.6-1.4) mg/dl Est Cr Clr Drug Dosing ml/min Est GFR ( Amer) ml/min Est GFR (Non-Af Amer) ml/min BUN/Creatinine Ratio (10-20) Glucose (70-99(Fasting)) mg/dl POC Glucose 135 H (70-99) mg/dl Estimat Average Glucose Hemoglobin A1c Calcium (8.5-10.1) mg/dl Phosphorus (2.5-4.9) mg/dl Magnesium 2.0 (1.7-2.4) mg/dl 07/19/21 07/19/21 Range/Units 16:12 11:02 WBC (4.8-10.8) K/uL RBC (4.7-6.1) M/uL Hgb (14.0-18.0) g/dL Hct (42-52) % MCV (80-100) fL MCH (25-34) pg MCHC (32-36) g/dL RDW Std Deviation (36.4-46.3) fL RDW Coeff of Tiffany (11.5-14.5) % Plt Count (130-400) K/uL MPV (7.4-10.4) fL Immature Gran % (Auto) % Neut % (Auto) % Lymph % (Auto) % [place] % (Auto) % Eos % (Auto) % Baso % (Auto) % Neut # (Auto) (1.4-6.5) K/uL Lymph # (Auto) (1.2-3.4) K/uL [place] # (Auto) (0.11-0.59) K/uL Eos # (Auto) (0-0.5) K/uL Baso # (Auto) (0-0.2) K/uL Immature Gran # (Auto) (0.00-0.02) K/uL Sodium (136-145) mmol/L Potassium (3.5-5.1) mmol/L Chloride (98-107) mmol/L Carbon Dioxide (21-32) mmol/L Anion Gap (3-11) BUN (6-23) mg/dl Creatinine (0.6-1.4) mg/dl Est Cr Clr Drug Dosing ml/min Est GFR ( Amer) ml/min Est GFR (Non-Af Amer) ml/min BUN/Creatinine Ratio (10-20) Glucose (70-99(Fasting)) mg/dl POC Glucose 144 H 162 H (70-99) mg/dl Estimat Average Glucose Hemoglobin A1c Calcium (8.5-10.1) mg/dl Phosphorus (2.5-4.9) mg/dl Magnesium (1.7-2.4) mg/dl Medications Administered Current Inpatient Medications Acetaminophen (Acetaminophen 325 Mg Tab) 650 mg PO Q4H PRN PRN Reason: Pain or Fever Stop: 08/18/21 03:00 Atorvastatin Calcium (Atorvastatin 20 Mg Tab) 20 mg PO HS [facility]GUE[facility] Stop: 08/18/21 20:59 Last Admin: 07/19/21 20:32 Dose: 20 mg Documented by: Dextrose (Dextrose 50% 50 Ml Syringe) 25 - 50 ml IV UD PRN; Protocol PRN Reason: Hypoglycemia Protocol Stop: 08/18/21 03:44 Doxycycline Hyclate (Doxycycline Hyclate 100 Mg Cap) 100 mg PO BID [facility] Stop: 07/26/21 08:59 Last Admin: 07/20/21 08:24 Dose: 100 mg Documented by: Enoxaparin Sodium (Enoxaparin Inj 40 Mg/0.4 Ml Syr) 40 mg SQ Q12H [facility] Stop: 08/18/21 08:59 Last Admin: 07/20/21 08:24 Dose: 40 mg Documented by: Fluticasone/Vilanterol (Fluticasone/Vilanterol 200/25mcg 14 Puffs/Inhaler) 1 puffs INH DAILY [facility] Stop: 08/18/21 08:59 Last Admin: 07/20/21 08:25 Dose: 1 puffs Documented by: Furosemide (Furosemide 40 Mg Tab) 40 mg PO QAM [facility] Stop: 08/18/21 08:59 Last Admin: 07/20/21 08:24 Dose: 40 mg Documented by: Glucagon (Glucagon For Inj 1 Mg Vial) 1 mg IM UD PRN; Protocol PRN Reason: Hypoglycemia Protocol Stop: 08/18/21 03:44 Glucose (Glucose 40% Gel 15 Gm Tube) 15 - 30 gm PO UD PRN; Protocol PRN Reason: Hypoglycemia Protocol Stop: 08/18/21 03:44 Glucose (Glucose 10 Tabs/Tube) 4 - 8 tabs PO UD PRN; Protocol PRN Reason: Hypoglycemia Protocol Stop: 08/18/21 03:44 Guaifenesin (Guaifenesin 600 Mg Tabcr) 600 mg PO Q12 [facility] Stop: 08/18/21 22:49 Last Admin: 07/20/21 08:24 Dose: 600 mg Documented by: Methylprednisolone 40 mg/ (Syringe) 0.64 mls @ 1.5 mls/min IV Q8H [facility] Stop: 08/18/21 03:59 Last Admin: 07/20/21 03:23 Dose: 1.5 mls/min Documented by: Insulin Aspart (Insulin Aspart Per Unit) 0 units SC ACHS [facility] Stop: 08/18/21 07:29 Last Admin: 07/20/21 07:56 Dose: 6 units Documented by: Insulin Glargine (Insulin Glargine Solostar 100 Units/Ml 3 Ml Pen) 6 units SC DAILY [facility] Stop: 08/18/21 08:59 Last Admin: 07/20/21 08:26 Dose: 6 units Documented by: Ipratropium [place] (Ipratropium [place] Neb Soln 0.02% 2.5 Ml Vial) 0.5 mg INH Q6R [facility] Stop: 08/18/21 03:00 Last Admin: 07/20/21 07:44 Dose: 0.5 mg Documented by: Levalbuterol HCl (Levalbuterol 1.25mg/0.5ml Neb) 1.25 mg INH Q6R [facility] Stop: 08/18/21 03:00 Last Admin: 07/20/21 07:44 Dose: Not Given Documented by: Levalbuterol HCl (Levalbuterol Hcl 1.25 Mg/3 Ml Neb) 1.25 mg NEB Q4H PRN; Protocol PRN Reason: Shortness Of Breath Or Wheezing Stop: 08/18/21 03:00 Last Admin: 07/20/21 07:44 Dose: 1.25 mg Documented by: Lisinopril (Lisinopril 40 Mg Tab) 40 mg PO DAILY [facility] Stop: 08/18/21 08:59 Last Admin: 07/20/21 08:24 Dose: 40 mg Documented by: Miscellaneous (Carbohydrates For Hypoglycemia ) 15 - 30 gm PO UD PRN PRN Reason: Hypoglycemia Treatment Stop: 08/18/21 03:44 Nitroglycerin (Nitroglycerin Sl 0.4 Mg/Tab Tab) 0.4 mg SL UD PRN PRN Reason: Chest Pain Stop: 08/18/21 03:00 (1) COPD (chronic obstructive pulmonary disease) COPD type: unspecified COPD Qualified Code(s): J44.9 - Chronic obstructive pulmonary disease, unspecified
[2021-07-20 12:54] LABS: Estimated Average Glucose 143 mg/dl; Hemoglobin A1C 6.6 % (4.5-5.6)
[2021-07-20] MEDS: ATORVASTATIN 20 MG TAB PO SCH (20:24)
[2021-07-20 22:43] LABS: Adenovirus PCR Not Detected (NotDetected); Bordetella parapertussis PCR Not Detected (NotDetected); Bordetella pertussis PCR Not Detected (NotDetected); Chlamydia pneumoniae PCR Not Detected (NotDetected); Coronavirus 229E PCR Not Detected (NotDetected); Coronavirus CoV-2 (COVID19)PCR Not Detected (NotDetected); Coronavirus HKU1 PCR Not Detected (NotDetected); Coronavirus NL63 PCR Not Detected (NotDetected); Coronavirus OC43PCR Not Detected (NotDetected); Influenza A PCR Not Detected (NotDetected); Influenza B PCR Not Detected (NotDetected); Mycoplasma pneumoniae PCR Not Detected (NotDetected); Parainfluenza Virus 1 PCR Not Detected (NotDetected); Parainfluenza Virus 2 PCR Not Detected (NotDetected); Parainfluenza Virus 3 PCR Not Detected (NotDetected); Parainfluenza Virus 4 PCR Not Detected (NotDetected); Respiratory Syncytial VirusPCR Not Detected (NotDetected); Rhinovirus/Enterovirus PCR Not Detected (NotDetected)
[2021-07-20 22:56] LABS: Human Metapneumovirus PCR DETECTED (NotDetected)
[2021-07-21] MEDS: LEVALBUTEROL 1.25MG/0.5ML NEB INH SCH ×4 (00:06→19:15)
[2021-07-21] MEDS: IPRATROPIUM BROMIDE NEB SOLN 0.02% 2.5 ML VIAL INH SCH ×4 (00:06→19:16)
[2021-07-21] MEDS: methylPREDNISolone 40 MG in SYRINGE 0 ML IV SCH ×2 (04:44→17:03)
[2021-07-21] MEDS: LEVALBUTEROL HCL 1.25 MG/3 ML NEB NEB PRN ×2 (07:10→14:21)
[2021-07-21] MEDS: FUROSEMIDE 40 MG TAB PO SCH ×2 (08:04→08:06)
[2021-07-21] MEDS: lisinopril 40 MG TAB PO SCH ×2 (08:04→08:06)
[2021-07-21] MEDS: INSULIN ASPART PER UNIT SC SCH ×4 (08:06→20:38)
[2021-07-21] MEDS: DOXYCYCLINE HYCLATE 100 MG CAP PO SCH ×2 (08:07→20:37)
[2021-07-21] MEDS: INSULIN GLARGINE SOLOSTAR 100 UNITS/ML 3 ML PEN SC SCH (08:07)
[2021-07-21] MEDS: FLUTICASONE/VILANTEROL 200/25MCG 14 PUFFS/INHALER INH SCH (08:07)
[2021-07-21] MEDS: guaiFENesin 600 MG TABCR PO SCH ×2 (08:07→20:37)
[2021-07-21] MEDS: ENOXAPARIN INJ 40 MG/0.4 ML SYR SQ SCH ×2 (08:07→20:37)
--- NOTE | 2021-07-21 10:12 | Hospitalist Progress Note ---
Date of Service July 21, 2021 Assessment & Plan (1) COPD (chronic obstructive pulmonary disease): (2) Acute and chronic respiratory failure with hypoxia: Plan: This is a 61-year-old male who presents with shortness of breath. 1. Shortness of breath and chronic obstructive pulmonary disease exacerbation: Acute on chronic respiratory failure. Continue his Advair Diskus and nebs around the clock and p.r.n., iv solumedrol 40 t.i.d. -> will decrease to BID,cont. p.o. doxycycline. Monitor in the med tele floor. Also needs two step prior to discharge. Reportedly patient also desaturates at night, should obtain a sleep study as outpatient. 2. Chronic diastolic congestive heart failure: Continue home Lasix and lisinopril. Will monitor for any volume overload. 3. Diabetes: Hold metformin. Placed on insulin sliding scale and Lantus. Monitor the blood sugar while the patient is getting steroids. 4. Hyperlipidemia: On statin. 5. Morbid obesity: Needs counseling. Needs sleep study as outpatient. 6. History of QT prolongation: QTc of 517. Avoid QT prolonging drugs. 7. Hypertension: On lisinopril and furosemide. Will monitor the blood pressure. 8. Thrombocytopenia, chronic: Needs followup. DVT prophylaxis: Lovenox. DISPOSITION:tele floor. Code: Full code Admission and Anticipated Discharge Date Admission Date: July 19, 2021 Subjective Patient seen in follow-up for hypoxic respiratory failure, likely secondary to COPD exacerbation Currently patient is sitting in chair, in no acute distress He is using 4-5 L of O2 via nasal cannula Says his breathing is better now, feeling much better Per RN, patient desaturates with sleeping Patient denies fevers, chills, chest pain, significant cough, abdominal pain, nausea or vomiting Review of Systems Review of Systems: All systems reviewed & are unremarkable except as noted in Subjective Physical Exam Physical Exam: GENERAL: obese M (BMI 46) sitting up in chair, not in acute distress. on NC 5L HEENT: NC/AT, EOMI, PERRL, Oral mucosa moist. LUNGS: No JVD, no neck masses. CARDIOVASCULAR: S1 and S2 heard. Regular rate and rhythm. No murmur, no gallop. RESPIRATORY SYSTEM: Normal AP diameter. No accessory muscle use. Diminished breath sounds bilaterally. minimal exp. wheezing. ABDOMEN: Soft. Bowel sounds are present, obese, nontender, no distention. NEURO:Alert oriented, answering questions appropriately, no facial asymmetry, speech fluent, moves extremities EXTREMITIES: Trace pedal edema, no erythema seen. Results & Data Results & Data ([facility]) Vital Signs (Past 12 Hours) Vital Signs Temp Pulse Pulse Resp BP Pulse Ox 07/21/21 07:28 36.6 C 85 17 133/77 92 07/21/21 07:10 86 18 93 07/21/21 03:18 36.8 C 74 18 167/96 H 95 07/21/21 00:06 81 18 91 07/21/21 00:00 82 07/20/21 23:00 36.6 C 85 22 146/94 H 92 Laboratory Results 07/21/21 07/20/21 07/20/21 Range/Units 07:27 20:32 20:27 POC Glucose 139 H 158 H (70-99) mg/dl Estimat Average Glucose mg/dl Hemoglobin A1c (4.5-5.6) % Adenovirus (PCR) Not Detected (NotDetected) B. pertussis DNA (PCR) Not Detected (NotDetected) B.parapertussis DNA PCR Not Detected (NotDetected) C. pneumoniae DNA (PCR) Not Detected (NotDetected) Coronavirus OC43 (PCR) Not Detected (NotDetected) Coronavirus HKU1 (PCR) Not Detected (NotDetected) Coronavirus 229E (PCR) Not Detected (NotDetected) SARS-CoV-2 (PCR) Not Detected (NotDetected) Coronavirus NL63 (PCR) Not Detected (NotDetected) Human Metapneumovir PCR DETECTED A* (NotDetected) Influenza Type A (PCR) Not Detected (NotDetected) Influenza Type B (PCR) Not Detected (NotDetected) M. pneumoniae (PCR) Not Detected (NotDetected) Parainfluenza 1 (PCR) Not Detected (NotDetected) Parainfluenza 2 (PCR) Not Detected (NotDetected) Parainfluenza 3 (PCR) Not Detected (NotDetected) Parainfluenza 4 (PCR) Not Detected (NotDetected) RSV (PCR) Not Detected (NotDetected) Entero/Rhino (PCR) Not Detected (NotDetected) 07/20/21 07/20/21 07/20/21 Range/Units 16:41 11:25 05:09 POC Glucose 132 H 143 H (70-99) mg/dl Estimat Average Glucose 143 mg/dl Hemoglobin A1c 6.6 H (4.5-5.6) % Adenovirus (PCR) (NotDetected) B. pertussis DNA (PCR) (NotDetected) B.parapertussis DNA PCR (NotDetected) C. pneumoniae DNA (PCR) (NotDetected) Coronavirus OC43 (PCR) (NotDetected) Coronavirus HKU1 (PCR) (NotDetected) Coronavirus 229E (PCR) (NotDetected) SARS-CoV-2 (PCR) (NotDetected) Coronavirus NL63 (PCR) (NotDetected) Human Metapneumovir PCR (NotDetected) Influenza Type A (PCR) (NotDetected) Influenza Type B (PCR) (NotDetected) M. pneumoniae (PCR) (NotDetected) Parainfluenza 1 (PCR) (NotDetected) Parainfluenza 2 (PCR) (NotDetected) Parainfluenza 3 (PCR) (NotDetected) Parainfluenza 4 (PCR) (NotDetected) RSV (PCR) (NotDetected) Entero/Rhino (PCR) (NotDetected) Medications Administered Current Inpatient Medications Acetaminophen (Acetaminophen 325 Mg Tab) 650 mg PO Q4H PRN PRN Reason: Pain or Fever Stop: 08/18/21 03:00 Atorvastatin Calcium (Atorvastatin 20 Mg Tab) 20 mg PO HS [facility] Stop: 08/18/21 20:59 Last Admin: 07/20/21 20:24 Dose: 20 mg Documented by: Dextrose (Dextrose 50% 50 Ml Syringe) 25 - 50 ml IV UD PRN; Protocol PRN Reason: Hypoglycemia Protocol Stop: 08/18/21 03:44 Doxycycline Hyclate (Doxycycline Hyclate 100 Mg Cap) 100 mg PO BID [facility] Stop: 07/26/21 08:59 Last Admin: 07/21/21 08:07 Dose: 100 mg Documented by: Enoxaparin Sodium (Enoxaparin Inj 40 Mg/0.4 Ml Syr) 40 mg SQ Q12H [facility] Stop: 08/18/21 08:59 Last Admin: 07/21/21 08:07 Dose: 40 mg Documented by: Fluticasone/Vilanterol (Fluticasone/Vilanterol 200/25mcg 14 Puffs/Inhaler) 1 puffs INH DAILY [facility] Stop: 08/18/21 08:59 Last Admin: 07/21/21 08:07 Dose: 1 puffs Documented by: Furosemide (Furosemide 40 Mg Tab) 40 mg PO QAM [facility] Stop: 08/18/21 08:59 Last Admin: 07/21/21 08:06 Dose: 40 mg Documented by: Glucagon (Glucagon For Inj 1 Mg Vial) 1 mg IM UD PRN; Protocol PRN Reason: Hypoglycemia Protocol Stop: 08/18/21 03:44 Glucose (Glucose 40% Gel 15 Gm Tube) 15 - 30 gm PO UD PRN; Protocol PRN Reason: Hypoglycemia Protocol Stop: 08/18/21 03:44 Glucose (Glucose 10 Tabs/Tube) 4 - 8 tabs PO UD PRN; Protocol PRN Reason: Hypoglycemia Protocol Stop: 08/18/21 03:44 Guaifenesin (Guaifenesin 600 Mg Tabcr) 600 mg PO Q12 [facility] Stop: 08/18/21 22:49 Last Admin: 07/21/21 08:07 Dose: 600 mg Documented by: Methylprednisolone 40 mg/ (Syringe) 0.64 mls @ 1.5 mls/min IV Q12H [facility] Stop: 08/20/21 15:59 Insulin Aspart (Insulin Aspart Per Unit) 0 units SC ACHS [facility] Stop: 08/18/21 07:29 Last Admin: 07/21/21 08:06 Dose: 5 units Documented by: Insulin Glargine (Insulin Glargine Solostar 100 Units/Ml 3 Ml Pen) 6 units SC DAILY [facility] Stop: 08/18/21 08:59 Last Admin: 07/21/21 08:07 Dose: 6 units Documented by: Ipratropium [place] (Ipratropium [place] Neb Soln 0.02% 2.5 Ml Vial) 0.5 mg INH Q6R [facility] Stop: 08/18/21 03:00 Last Admin: 07/21/21 07:10 Dose: 0.5 mg Documented by: Levalbuterol HCl (Levalbuterol 1.25mg/0.5ml Neb) 1.25 mg INH Q6R [facility] Stop: 08/18/21 03:00 Last Admin: 07/21/21 07:16 Dose: Not Given Documented by: Levalbuterol HCl (Levalbuterol Hcl 1.25 Mg/3 Ml Neb) 1.25 mg NEB Q4H PRN; Protocol PRN Reason: Shortness Of Breath Or Wheezing Stop: 08/18/21 03:00 Last Admin: 07/21/21 07:10 Dose: 1.25 mg Documented by: Lisinopril (Lisinopril 40 Mg Tab) 40 mg PO DAILY [facility] Stop: 08/18/21 08:59 Last Admin: 07/21/21 08:06 Dose: 40 mg Documented by: Miscellaneous (Carbohydrates For Hypoglycemia ) 15 - 30 gm PO UD PRN PRN Reason: Hypoglycemia Treatment Stop: 08/18/21 03:44 Nitroglycerin (Nitroglycerin Sl 0.4 Mg/Tab Tab) 0.4 mg SL UD PRN PRN Reason: Chest Pain Stop: 08/18/21 03:00 (1) COPD (chronic obstructive pulmonary disease) COPD type: unspecified COPD Qualified Code(s): J44.9 - Chronic obstructive pulmonary disease, unspecified
[2021-07-21 11:27] LABS: Anion Gap 5 (3-11); Blood Urea Nitrogen 32 mg/dl (6-23); Calcium 10.5 mg/dl (8.5-10.1); Carbon Dioxide 35 mmol/L (21-32); Chloride 97 mmol/L (98-107); Creatinine Clr Calc Pharmacy 109.6 ml/min; Est GFR (Non-African American) 92.3 ml/min; Glucose 166 mg/dl (70-99(Fasting)); Magnesium 2.3 mg/dl (1.7-2.4); Sodium 137 mmol/L (136-145)
[2021-07-21] MEDS: ATORVASTATIN 20 MG TAB PO SCH (20:37)
[2021-07-22] MEDS: IPRATROPIUM BROMIDE NEB SOLN 0.02% 2.5 ML VIAL INH SCH ×4 (00:06→19:23)
[2021-07-22] MEDS: LEVALBUTEROL 1.25MG/0.5ML NEB INH SCH ×4 (00:06→19:23)
[2021-07-22] MEDS: methylPREDNISolone 40 MG in SYRINGE 0 ML IV SCH ×2 (05:32→16:51)
[2021-07-22 06:50] LABS: Hematocrit (blood only) 44.1 % (42-52); Hemoglobin 13.7 g/dL (14.0-18.0); Mean Corpuscular Hemoglobin 30.2 pg (25-34); Mean Corpuscular Hgb Conc 31.1 g/dL (32-36); Mean Corpuscular Volume 97.4 fL (80-100); Mean Platelet Volume 11.3 fL (7.4-10.4); Platelet Count 154 K/uL (130-400); RDW Coefficient of Variation 15.5 % (11.5-14.5); Red Blood Count 4.53 M/uL (4.7-6.1); White Blood Count 8.21 K/uL (4.8-10.8)
[2021-07-22 07:06] LABS: BUN Creatinine Ratio 39.1 (10-20); Calcium 9.9 mg/dl (8.5-10.1); Creatinine Clr Calc Pharmacy 111.9 ml/min; Est GFR (Non-African American) 93.2 ml/min; Magnesium 2.3 mg/dl (1.7-2.4); Potassium 4.4 mmol/L (3.5-5.1)
[2021-07-22] MEDS: LEVALBUTEROL HCL 1.25 MG/3 ML NEB NEB PRN ×2 (07:16→14:12)
[2021-07-22] MEDS: guaiFENesin 600 MG TABCR PO SCH ×2 (08:21→21:31)
[2021-07-22] MEDS: FUROSEMIDE 40 MG TAB PO SCH (08:21)
[2021-07-22] MEDS: DOXYCYCLINE HYCLATE 100 MG CAP PO SCH ×2 (08:23→21:31)
[2021-07-22] MEDS: INSULIN ASPART PER UNIT SC SCH ×4 (08:23→21:32)
[2021-07-22] MEDS: INSULIN GLARGINE SOLOSTAR 100 UNITS/ML 3 ML PEN SC SCH (08:24)
[2021-07-22] MEDS: ENOXAPARIN INJ 40 MG/0.4 ML SYR SQ SCH ×2 (08:24→21:31)
[2021-07-22] MEDS: FLUTICASONE/VILANTEROL 200/25MCG 14 PUFFS/INHALER INH SCH (10:09)
--- NOTE | 2021-07-22 12:52 | Hospitalist Progress Note ---
Date of Service July 22, 2021 Assessment & Plan (1) COPD (chronic obstructive pulmonary disease): (2) Acute and chronic respiratory failure with hypoxia: Plan: This is a 61-year-old male who presents with shortness of breath. 1. Shortness of breath and chronic obstructive pulmonary disease exacerbation: Acute on chronic respiratory failure. Respiratory panel positive for human metapneumovirus Continue his Advair Diskus and nebs around the clock and p.r.n., iv solumedrol 40 t.i.d. -> decreased to BID,cont. p.o. doxycycline. Monitor in the med tele floor. Also needs two step prior to discharge. Reportedly patient also desaturates at night, should obtain a sleep study as outpatient. 2. Chronic diastolic congestive heart failure: Continue home Lasix and lisinopril. Will monitor for any volume overload. 3. Diabetes: Hold metformin. Placed on insulin sliding scale and Lantus. Monitor the blood sugar while the patient is getting steroids. 4. Hyperlipidemia: On statin. 5. Morbid obesity: Needs counseling. Needs sleep study as outpatient. 6. History of QT prolongation: QTc of 517. Avoid QT prolonging drugs. 7. Hypertension: On lisinopril and furosemide. Will monitor the blood pressure. 8. Thrombocytopenia, chronic: Needs followup. DVT prophylaxis: Lovenox. DISPOSITION:tele floor. Code: Full code Admission and Anticipated Discharge Date Admission Date: July 19, 2021 Subjective Patient seen in follow-up for hypoxic respiratory failure, likely secondary to COPD exacerbation Currently patient is sitting in chair, in no acute distress He is using 4-5 L of O2 via nasal cannula Says his breathing is better now, feeling much better Per RN, patient desaturates with sleeping Respiratory study ordered, patient is positive human [place] pneumo virus Pt was supposed to get sleep study done as outpt but unfortunately was admitted again (and could not do the study). Patient denies fevers, chills, chest pain, significant cough, abdominal pain, nausea or vomiting Review of Systems Review of Systems: All systems reviewed & are unremarkable except as noted in Subjective Physical Exam Physical Exam: GENERAL: obese M (BMI 46) sitting up in chair, not in acute distress. on NC 5L HEENT: NC/AT, EOMI, PERRL, Oral mucosa moist. LUNGS: No JVD, no neck masses. CARDIOVASCULAR: S1 and S2 heard. Regular rate and rhythm. No murmur, no gallop. RESPIRATORY SYSTEM: Normal AP diameter. No accessory muscle use. Diminished b reath sounds bilaterally. minimal exp. wheezing. ABDOMEN: Soft. Bowel sounds are present, obese, nontender, no distention. NEURO:Alert oriented, answering questions appropriately, no facial asymmetry, speech fluent, moves extremities EXTREMITIES: Trace pedal edema, no erythema seen. Results & Data Results & Data ([facility]) Vital Signs (Past 12 Hours) Vital Signs Temp Pulse Resp BP Pulse Ox 07/22/21 11:16 36.5 C 86 20 120/72 93 07/22/21 07:25 36.6 C 75 18 103/84 93 07/22/21 07:17 84 18 93 07/22/21 03:08 36.5 C 94 H 20 134/91 96 Laboratory Results 07/22/21 07/22/21 07/22/21 Range/Units 11:16 07:24 06:20 WBC (4.8-10.8) K/uL RBC (4.7-6.1) M/uL Hgb (14.0-18.0) g/dL Hct (42-52) % MCV (80-100) fL MCH (25-34) pg MCHC (32-36) g/dL RDW Std Deviation (36.4-46.3) fL RDW Coeff of Tiffany (11.5-14.5) % Plt Count (130-400) K/uL MPV (7.4-10.4) fL Sodium 137 (136-145) mmol/L Potassium 4.4 (3.5-5.1) mmol/L Chloride 96 L (98-107) mmol/L Carbon Dioxide 39 H (21-32) mmol/L Anion Gap 2 L (3-11) BUN 34 H (6-23) mg/dl Creatinine 0.87 (0.6-1.4) mg/dl Est Cr Clr Drug Dosing 111.9 ml/min Est GFR ( Amer) 108.0 ml/min Est GFR (Non-Af Amer) 93.2 ml/min BUN/Creatinine Ratio 39.1 H (10-20) Glucose 117 H (70-99(Fasting)) mg/dl POC Glucose 118 H 117 H (70-99) mg/dl Calcium 9.9 (8.5-10.1) mg/dl Magnesium 2.3 (1.7-2.4) mg/dl 07/22/21 07/21/21 07/21/21 Range/Units 06:20 20:34 16:17 WBC 8.21 (4.8-10.8) K/uL RBC 4.53 L (4.7-6.1) M/uL Hgb 13.7 L (14.0-18.0) g/dL Hct 44.1 (42-52) % MCV 97.4 (80-100) fL MCH 30.2 (25-34) pg MCHC 31.1 L (32-36) g/dL RDW Std Deviation 55.0 H (36.4-46.3) fL RDW Coeff of Tiffany 15.5 H (11.5-14.5) % Plt Count 154 (130-400) K/uL MPV 11.3 H (7.4-10.4) fL Sodium (136-145) mmol/L Potassium (3.5-5.1) mmol/L Chloride (98-107) mmol/L Carbon Dioxide (21-32) mmol/L Anion Gap (3-11) BUN (6-23) mg/dl Creatinine (0.6-1.4) mg/dl Est Cr Clr Drug Dosing ml/min Est GFR ( Amer) ml/min Est GFR (Non-Af Amer) ml/min BUN/Creatinine Ratio (10-20) Glucose (70-99(Fasting)) mg/dl POC Glucose 135 H 93 (70-99) mg/dl Calcium (8.5-10.1) mg/dl Magnesium (1.7-2.4) mg/dl Medications Administered Current Inpatient Medications Acetaminophen (Acetaminophen 325 Mg Tab) 650 mg PO Q4H PRN PRN Reason: Pain or Fever Stop: 08/18/21 03:00 Atorvastatin Calcium (Atorvastatin 20 Mg Tab) 20 mg PO HS RODRÍGUEZ Stop: 08/18/21 20:59 Last Admin: 07/21/21 20:37 Dose: 20 mg Documented by: Dextrose (Dextrose 50% 50 Ml Syringe) 25 - 50 ml IV UD PRN; Protocol PRN Reason: Hypoglycemia Protocol Stop: 08/18/21 03:44 Doxycycline Hyclate (Doxycycline Hyclate 100 Mg Cap) 100 mg PO BID RODRÍGUEZ Stop: 07/26/21 08:59 Last Admin: 07/22/21 08:23 Dose: 100 mg Documented by: Enoxaparin Sodium (Enoxaparin Inj 40 Mg/0.4 Ml Syr) 40 mg SQ Q12H RODRÍGUEZ Stop: 08/18/21 08:59 Last Admin: 07/22/21 08:24 Dose: 40 mg Documented by: Fluticasone/Vilanterol (Fluticasone/Vilanterol 200/25mcg 14 Puffs/Inhaler) 1 puffs INH DAILY RODRÍGUEZ Stop: 08/18/21 08:59 Last Admin: 07/22/21 10:09 Dose: 1 puffs Documented by: Furosemide (Furosemide 40 Mg Tab) 40 mg PO QAM [facility] Stop: 08/18/21 08:59 Last Admin: 07/22/21 08:21 Dose: 40 mg Documented by: Glucagon (Glucagon For Inj 1 Mg Vial) 1 mg IM UD PRN; Protocol PRN Reason: Hypoglycemia Protocol Stop: 08/18/21 03:44 Glucose (Glucose 40% Gel 15 Gm Tube) 15 - 30 gm PO UD PRN; Protocol PRN Reason: Hypoglycemia Protocol Stop: 08/18/21 03:44 Glucose (Glucose 10 Tabs/Tube) 4 - 8 tabs PO UD PRN; Protocol PRN Reason: Hypoglycemia Protocol Stop: 08/18/21 03:44 Guaifenesin (Guaifenesin 600 Mg Tabcr) 600 mg PO Q12 [facility]GUE[facility] Stop: 08/18/21 22:49 Last Admin: 07/22/21 08:21 Dose: 600 mg Documented by: Methylprednisolone 40 mg/ (Syringe) 0.64 mls @ 1.5 mls/min IV Q12H RODR[facility]GUEZ Stop: 08/20/21 15:59 Last Admin: 07/22/21 05:32 Dose: 1.5 mls/min Documented by: Insulin Aspart (Insulin Aspart Per Unit) 0 units SC ACHS [facility] Stop: 08/18/21 07:29 Last Admin: 07/22/21 12:17 Dose: 4 units Documented by: Insulin Glargine (Insulin Glargine Solostar 100 Units/Ml 3 Ml Pen) 6 units SC DAILY RODR[facility]GUEZ Stop: 08/18/21 08:59 Last Admin: 07/22/21 08:24 Dose: 6 units Documented by: Ipratropium [place] (Ipratropium [place] Neb Soln 0.02% 2.5 Ml Vial) 0.5 mg INH Q6R RODR[facility]GUE[facility] Stop: 08/18/21 03:00 Last Admin: 07/22/21 07:16 Dose: 0.5 mg Documented by: Levalbuterol HCl (Levalbuterol 1.25mg/0.5ml Neb) 1.25 mg INH Q6R RODR[facility]GUE[facility] Stop: 08/18/21 03:00 Last Admin: 07/22/21 07:48 Dose: Not Given Documented by: Levalbuterol HCl (Levalbuterol Hcl 1.25 Mg/3 Ml Neb) 1.25 mg NEB Q4H PRN; Protocol PRN Reason: Shortness Of Breath Or Wheezing Stop: 08/18/21 03:00 Last Admin: 07/22/21 07:16 Dose: 1.25 mg Documented by: Lisinopril (Lisinopril 40 Mg Tab) 40 mg PO DAILY RODR[facility]GUEZ Stop: 08/18/21 08:59 Last Admin: 07/21/21 08:06 Dose: 40 mg Documented by: Miscellaneous (Carbohydrates For Hypoglycemia ) 15 - 30 gm PO UD PRN PRN Reason: Hypoglycemia Treatment Stop: 08/18/21 03:44 Nitroglycerin (Nitroglycerin Sl 0.4 Mg/Tab Tab) 0.4 mg SL UD PRN PRN Reason: Chest Pain Stop: 08/18/21 03:00 (1) COPD (chronic obstructive pulmonary disease) COPD type: unspecified COPD Qualified Code(s): J44.9 - Chronic obstructive pulmonary disease, unspecified
--- NOTE | 2021-07-22 14:24 | XRay Report ---
XR chest 1V portable CLINICAL HISTORY: Follow-up atypical chest pain. COMPARISON STUDY: 07/18/2021 TECHNIQUE: 1 view of the chest FINDINGS: Single frontal view of the chest demonstrates the cardiomediastinal silhouette to be within normal li mits. The lungs are clear of alveolar opacities. There is no evidence for pleural effusion. There is no evidence for vascular congestion. There is no acute osseous pathology. IMPRESSION: 1. No acute cardiopulmonary disease. ACT 112: Negative or not required by law. Electronically signed by: Peter Nelson M.D. 07/22/2021 2:23 PM
[2021-07-22] MEDS: ATORVASTATIN 20 MG TAB PO SCH (21:31)
[2021-07-23] MEDS: IPRATROPIUM BROMIDE NEB SOLN 0.02% 2.5 ML VIAL INH SCH ×3 (01:19→12:16)
[2021-07-23] MEDS: LEVALBUTEROL 1.25MG/0.5ML NEB INH SCH ×3 (01:19→12:16)
[2021-07-23] MEDS: methylPREDNISolone 40 MG in SYRINGE 0 ML IV SCH ×2 (03:02→16:59)
[2021-07-23 07:00] LABS: BUN Creatinine Ratio 32.1 (10-20); Calcium 10.1 mg/dl (8.5-10.1); Creatinine Clr Calc Pharmacy 115.9 ml/min; Est GFR (African American) 109.5 ml/min; Est GFR (Non-African American) 94.5 ml/min; Magnesium 2.3 mg/dl (1.7-2.4)
[2021-07-23] MEDS: DOXYCYCLINE HYCLATE 100 MG CAP PO SCH (08:30)
[2021-07-23] MEDS: lisinopril 40 MG TAB PO SCH (08:30)
[2021-07-23] MEDS: guaiFENesin 600 MG TABCR PO SCH (08:30)
[2021-07-23] MEDS: FUROSEMIDE 40 MG TAB PO SCH (08:30)
[2021-07-23] MEDS: FLUTICASONE/VILANTEROL 200/25MCG 14 PUFFS/INHALER INH SCH (08:31)
[2021-07-23] MEDS: ENOXAPARIN INJ 40 MG/0.4 ML SYR SQ SCH (08:31)
[2021-07-23] MEDS: INSULIN GLARGINE SOLOSTAR 100 UNITS/ML 3 ML PEN SC SCH (08:31)
[2021-07-23] MEDS: INSULIN ASPART PER UNIT SC SCH ×3 (08:37→17:00)
--- NOTE | 2021-07-23 09:12 | Hospitalist Progress Note ---
Date of Service July 23, 2021 Assessment & Plan (1) COPD (chronic obstructive pulmonary disease): (2) Acute and chronic respiratory failure with hypoxia: Plan: This is a 61-year-old male who presents with shortness of breath. 1. Shortness of breath and chronic obstructive pulmonary disease exacerbation: Acute on chronic respiratory failure. Respiratory panel positive for human metapneumovirus Continue his Advair Diskus and nebs around the clock and p.r.n., iv solumedrol 40 t.i.d. -> decreased to BID,cont. p.o. doxycycline. Monitor in the med tele floor. Reportedly patient also desaturates at night, should obtain a sleep study as outpatient. Patient feels better, and is very eager to be discharged. Two-step study ordered, he needs 3L of O2 at rest, and 5 L with ambulation. 2. Chronic diastolic congestive heart failure: Continue home Lasix and lisinopril. Will monitor for any volume overload. 3. Diabetes: Hold metformin. Placed on insulin sliding scale and Lantus. Monitor the blood sugar while the patient is getting steroids. 4. Hyperlipidemia: On statin. 5. Morbid obesity: Needs counseling. Needs sleep study as outpatient. 6. History of QT prolongation: QTc of 517. Avoid QT prolonging drugs. 7. Hypertension: On lisinopril and furosemide. Will monitor the blood pressure. 8. Thrombocytopenia, chronic: Needs followup. DVT prophylaxis: Lovenox. DISPOSITION:tele floor. Code: Full code Admission and Anticipated Discharge Date Admission Date: July 19, 2021 Subjective Patient seen in follow-up for hypoxic respiratory failure, likely secondary to COPD exacerbation Currently patient is sitting in chair, in no acute distress He is using 4-5 L of O2 via nasal cannula Says his breathing is better now, feeling much better Per RN, patient desaturates with sleeping Respiratory panel ordered, patient is positive human [place] pneumo virus Patient on DuoNeb's here, responding quite well, recommend to discharge home on nebulizer treatments as well Pt was supposed to get sleep study done as outpt but unfortunately was admitted again (and could not do the study). Patient denies fevers, chills, chest pain, significant cough, abdominal pain, nausea or vomiting He is extremely eager to be discharged, and so 2 step study was ordered. He needs 3 L at rest, 5 L with ambulation. Review of Systems Review of Systems: All systems reviewed & are unremarkable except as noted in Subjective Physical Exam Physical Exam: GENERAL: obese M (BMI 46) sitting up in chair, not in acute distress. on NC 5L HEENT: NC/AT, EOMI, PERRL, Oral mucosa moist. LUNGS: No JVD, no neck masses. CARDIOVASCULAR: S1 and S2 heard. Regular rate and rhythm. No murmur, no gallop. RESPIRATORY SYSTEM: Normal AP diameter. No accessory muscle use. Diminished breath sounds bilaterally. minimal exp. wheezing. ABDOMEN: Soft. Bowel sounds are present, obese, nontender, no distention. NEURO:Alert oriented, answering questions appropriately, no facial asymmetry, speech fluent, moves extremities EXTREMITIES: Trace pedal edema, no erythema seen. Results & Data Results & Data ([facility]) Vital Signs (Past 12 Hours) Vital Signs Temp Pulse Resp BP Pulse Ox 07/23/21 07:37 36.8 C 88 19 119/80 90 07/23/21 06:59 81 81 H 92 07/23/21 01:19 78 18 93 07/22/21 23:00 36.9 C 77 20 103/58 L 97 Laboratory Results 07/23/21 07/23/21 07/23/21 Range/Units 16:52 11:39 07:10 Sodium (136-145) mmol/L Potassium (3.5-5.1) mmol/L Chloride (98-107) mmol/L Carbon Dioxide (21-32) mmol/L Anion Gap (3-11) BUN (6-23) mg/dl Creatinine (0.6-1.4) mg/dl Est Cr Clr Drug Dosing ml/min Est GFR ( Amer) ml/min Est GFR (Non-Af Amer) ml/min BUN/Creatinine Ratio (10-20) Glucose (70-99(Fasting)) mg/dl POC Glucose 117 H 140 H 160 H (70-99) mg/dl Calcium (8.5-10.1) mg/dl Magnesium (1.7-2.4) mg/dl 07/23/21 07/22/21 Range/Units 06:16 20:02 Sodium 135 L (136-145) mmol/L Potassium 5.0 (3.5-5.1) mmol/L Chloride 96 L (98-107) mmol/L Carbon Dioxide 34 H (21-32) mmol/L Anion Gap 5 (3-11) BUN 27 H (6-23) mg/dl Creatinine 0.84 (0.6-1.4) mg/dl Est Cr Clr Drug Dosing 115.9 ml/min Est GFR ( Amer) 109.5 ml/min Est GFR (Non-Af Amer) 94.5 ml/min BUN/Creatinine Ratio 32.1 H (10-20) Glucose 150 H (70-99(Fasting)) mg/dl POC Glucose 152 H (70-99) mg/dl Calcium 10.1 (8.5-10.1) mg/dl Magnesium 2.3 (1.7-2.4) mg/dl Medications Administered Current Inpatient Medications Acetaminophen (Acetaminophen 325 Mg Tab) 650 mg PO Q4H PRN PRN Reason: Pain or Fever Stop: 08/18/21 03:00 Atorvastatin Calcium (Atorvastatin 20 Mg Tab) 20 mg PO HS RODRÍGUEZ Stop: 08/18/21 20:59 Last Admin: 07/22/21 21:31 Dose: 20 mg Documented by: Dextrose (Dextrose 50% 50 Ml Syringe) 25 - 50 ml IV UD PRN; Protocol PRN Reason: Hypoglycemia Protocol Stop: 08/18/21 03:44 Doxycycline Hyclate (Doxycycline Hyclate 100 Mg Cap) 100 mg PO BID RODRÍGUEZ Stop: 07/26/21 08:59 Last Admin: 07/23/21 08:30 Dose: 100 mg Documented by: Enoxaparin Sodium (Enoxaparin Inj 40 Mg/0.4 Ml Syr) 40 mg SQ Q12H [facility]OD[facility]GUEZ Stop: 08/18/21 08:59 Last Admin: 07/23/21 08:31 Dose: 40 mg Documented by: Fluticasone/Vilanterol (Fluticasone/Vilanterol 200/25mcg 14 Puffs/Inhaler) 1 puffs INH DAILY RODRÍGUEZ Stop: 08/18/21 08:59 Last Admin: 07/23/21 08:31 Dose: 1 puffs Documented by: Furosemide (Furosemide 40 Mg Tab) 40 mg PO QAM [facility] Stop: 08/18/21 08:59 Last Admin: 07/23/21 08:30 Dose: 40 mg Documented by: Glucagon (Glucagon For Inj 1 Mg Vial) 1 mg IM UD PRN; Protocol PRN Reason: Hypoglycemia Protocol Stop: 08/18/21 03:44 Glucose (Glucose 40% Gel 15 Gm Tube) 15 - 30 gm PO UD PRN; Protocol PRN Reason: Hypoglycemia Protocol Stop: 08/18/21 03:44 Glucose (Glucose 10 Tabs/Tube) 4 - 8 tabs PO UD PRN; Protocol PRN Reason: Hypoglycemia Protocol Stop: 08/18/21 03:44 Guaifenesin (Guaifenesin 600 Mg Tabcr) 600 mg PO Q12 [facility]GUE[facility] Stop: 08/18/21 22:49 Last Admin: 07/23/21 08:30 Dose: 600 mg Documented by: Methylprednisolone 40 mg/ (Syringe) 0.64 mls @ 1.5 mls/min IV Q12H [facility] Stop: 08/20/21 15:59 Last Admin: 07/23/21 16:59 Dose: 1.5 mls/min Documented by: Insulin Aspart (Insulin Aspart Per Unit) 0 units SC ACHS [facility] Stop: 08/18/21 07:29 Last Admin: 07/23/21 17:00 Dose: 6 units Documented by: Insulin Glargine (Insulin Glargine Solostar 100 Units/Ml 3 Ml Pen) 6 units SC DAILY [facility] Stop: 08/18/21 08:59 Last Admin: 07/23/21 08:31 Dose: 6 units Documented by: Ipratropium [place] (Ipratropium [place] Neb Soln 0.02% 2.5 Ml Vial) 0.5 mg INH Q6R [facility] Stop: 08/18/21 03:00 Last Admin: 07/23/21 12:16 Dose: 0.5 mg Documented by: Levalbuterol HCl (Levalbuterol 1.25mg/0.5ml Neb) 1.25 mg INH Q6R [facility]ODR[facility]GUEZ Stop: 08/18/21 03:00 Last Admin: 07/23/21 12:16 Dose: 1.25 mg Documented by: Levalbuterol HCl (Levalbuterol Hcl 1.25 Mg/3 Ml Neb) 1.25 mg NEB Q4H PRN; Protocol PRN Reason: Shortness Of Breath Or Wheezing Stop: 08/18/21 03:00 Last Admin: 07/22/21 14:12 Dose: 1.25 mg Documented by: Lisinopril (Lisinopril 40 Mg Tab) 40 mg PO DAILY [facility] Stop: 08/18/21 08:59 Last Admin: 07/23/21 08:30 Dose: 40 mg Documented by: Miscellaneous (Carbohydrates For Hypoglycemia ) 15 - 30 gm PO UD PRN PRN Reason: Hypoglycemia Treatment Stop: 08/18/21 03:44 Nitroglycerin (Nitroglycerin Sl 0.4 Mg/Tab Tab) 0.4 mg SL UD PRN PRN Reason: Chest Pain Stop: 08/18/21 03:00 (1) COPD (chronic obstructive pulmonary disease) COPD type: unspecified COPD Qualified Code(s): J44.9 - Chronic obstructive pulmonary disease, unspecified
--- NOTE | 2021-07-23 17:26 | Discharge Summary ---
Date of Service July 23, 2021 Admission HPI Per Admitting Provider A 61-year-old male with past medical history significant for chronic hypoxemic respiratory failure, type 2 diabetes, mixed hyperlipidemia, COPD, interstitial lung disease, chronic diastolic CHF, hypertension, history of QT prolongation, morbid obesity, fatty liver, hidradenitis suppurativa, comes with also shortness of breath. The patient was in the hospital in March of this year with acute diastolic CHF and has also COPD and he was discharged on 3 liters oxygen with rest and 4 liters with activity, but the patient states he was told recently to do 1 liter at rest and 3 liters with activity. Last week, he had mowed grass and then after that he thinks since last Friday he was feeling short of breath and cough and it was progressively worsening and he increased the oxygen to 2 liters, but when the EMS arrived, he was saturating only 50%. Initially, he was placed on 10lt OxyMask and after nebs and steroids, currently on 5 liters OxyMask, and is saturating okay. Resting comfortably, he is feeling better. He is bringing up whitish phlegm. Denies any fever or chills. No chest pain, no headache, no neck pain, no back pain, no leg pains. No earaches, no runny nose, no sore throat. No blurred visions. No nausea, no chest pain, no abdominal pain, no diarrhea or constipation. Normal bowel movements. Normal bladder movements. Ambulating okay. Lives with his . Admission Exam Per Admitting Provider GENERAL: The patient is of moderate build, not in acute distress. VITAL SIGNS: Temperature 36.8, pulse 93, respiratory rate 18, blood pressure 154/77, oxygen currently 96% on 4 liters OxyMask. HEENT: No pallor, no icterus. Pupils equal, round and reactive to light. Oral mucosa moist. LUNGS: No JVD, no neck masses. CARDIOVASCULAR: S1 and S2 heard. Regular rate and rhythm. No murmur, no gallop. RESPIRATORY SYSTEM: Normal AP diameter. No accessory muscle use. Diminished breath sounds bilaterally. No wheezing. ABDOMEN: Soft. Bowel sounds are present, nontender, no distention. CENTRAL NERVOUS SYSTEM: Cranial nerves II-XII grossly intact, nonfocal. EXTREMITIES: Trace pedal edema, no erythema seen. Principal Diagnosis Acute on chronic hypoxic respiratory failure COPD exacerbation secondary to respiratory virus Likely sleep apnea Discharge Exam GENERAL: obese M (BMI 46) sitting up in chair, not in acute distress. on NC 5L HEENT: NC/AT, EOMI, PERRL, Oral mucosa moist. LUNGS: No JVD, no neck masses. CARDIOVASCULAR: S1 and S2 heard. Regular rate and rhythm. No murmur, no gallop. RESPIRATORY SYSTEM: Normal AP diameter. No accessory muscle use. Diminished breath sounds bilaterally. minimal exp. wheezing. ABDOMEN: Soft. Bowel sounds are present, obese, nontender, no distention. NEURO:Alert oriented, answering questions appropriately, no facial asymmetry, speech fluent, moves extremities EXTREMITIES: Trace pedal edema, no erythema seen. Discharge Data Allergies Allergy/AdvReac Type Severity Reaction Status Date / Time No Known Allergies Allergy Unknown Verified 07/18/21 19:50 Consultations 07/18/21 20:19 ED Decision to Admit Stat Hospital Course (1) COPD (chronic obstructive pulmonary disease): (2) Acute and chronic respiratory failure with hypoxia: This is a 61-year-old male who presents with shortness of breath. 1. Shortness of breath and chronic obstructive pulmonary disease exacerbation: Acute on chronic respiratory failure. Respiratory panel positive for human metapneumovirus Continue his Advair Diskus and nebs around the clock and p.r.n., iv solumedrol 40 t.i.d. -> decreased to BID,cont. p.o. doxycycline. Monitor in the med tele floor. Reportedly patient also desaturates at night, should obtain a sleep study as outpatient. Patient feels better, and is very eager to be discharged. Two-step study ordered, he needs 3L of O2 at rest, and 5 L with ambulation. Responded well to DuoNeb's, will order nebulizing treatments for home as well. 2. Chronic diastolic congestive heart failure: Continue home Lasix and lisinopril. Will monitor for any volume overload. 3. Diabetes: Hold metformin. Placed on insulin sliding scale and Lantus. Monitor the blood sugar while the patient is getting steroids. 4. Hyperlipidemia: On statin. 5. Morbid obesity: Needs counseling. Needs sleep study as outpatient. 6. History of QT prolongation: QTc of 517. Avoid QT prolonging drugs. 7. Hypertension: On lisinopril and furosemide. Will monitor the blood pressure. 8. Thrombocytopenia, chronic: Needs followup. Total Time Total Time Spent Total Time Spent (In Minutes): 40 Discharge Plan Discharge Items Patient Disposition: Home - Self-Care Reason For Visit: SOB Discharge Diagnosis: Acute on chronic hypoxic respiratory failure COPD exacerbation secondary to respiratory virus Likely sleep apnea Activity: Per Instructions section Non-emergency contact: Primary Care Provider Call non-emergency contact if: you have any medication questions and your symptoms worsen Follow-up/Referrals: Benjamin Pagan MD [Primary Care Provider] - Diet: Heart Healthy Addtl Attending Provider Instructions: Follow-up with a primary care doctor within 1 to 2 weeks. You should follow-up with sleep medicine at your earliest convenience, as you likely have sleep apnea, and may need CPAP. Take prednisone 40 mg daily as prescribed. Take doxycycline, as prescribed. Use nebulizing treatments, as needed, as prescribed. Use supplemental oxygen, 3 L at rest, 5L with ambulation, your goal oxygen saturation is 88 to 92%. Pending Studies at Discharge: No Stand-Alone Forms: My [facility] [place], Smoking Cessation Medications and DC Order Prescriptions: New levalbuterol HCl 1.25 mg/3 mL Solution For Nebulization 1.25 mg NEB Q4H PRN (Reason: shortness of breath or wheezing) 5 Days Qty: 36 RF: 0 ipratropium bromide 0.02 % Solution 0.5 mg inhalation Q6R PRN (Reason: shortness of breath or wheezing) 5 Days Qty: 12.5 RF: 0 guaifenesin [Mucinex] 600 mg Tablet Extended Release 12hr 600 mg PO Q12 Qty: 10 RF: 0 doxycycline hyclate 100 mg Capsule 100 mg PO BID Qty: 3 RF: 0 prednisone 20 mg tablet 40 mg PO DAILY 4 Days Qty: 8 RF: 0 Continued atorvastatin 20 mg tablet 20 mg PO HS RF: 0 fluticasone propion-salmeterol [Advair Diskus] 250-50 mcg/dose blister with device 1 inh inhalation DAILY RF: 0 Humira(CF) Pen 40 mg/0.4 mL pen injector kit 40 mg SUBCUT WK RF: 0 furosemide 40 mg Tablet 40 mg PO QAM Qty: 30 RF: 1 lisinopril 40 mg tablet 40 mg PO DAILY Qty: 30 RF: 1 metformin 500 mg tablet 1,000 mg PO QPM RF: 0 Discharge Orders: Discharge Order (Routine); Ordered 07/23/21 Ordered By: Balwinder Goyal/Other Patient Handouts: Managing Type 2 Diabetes Admission Data Admit Date/Time: 07/19/21 00:07 Attending Provider: Balwinder Luu Admit Provider: Piyush Irwin Primary Care Provider: Benjamin Pagan Other Providers: Piyush Irwin
== END 2021-07-23 18:35 | disposition home or self-care (01) | DRG 190 ==
LOC: ED 18:39 → 1E 07-19 00:07 → 2E 07-20 15:48